=== PATIENT | male | born 1950 | race American Indian/Alaskan Native ===

== ENCOUNTER 2019-07-26 14:23 | Inpatient (IN) | payer MEDICARE ==
[2019-07-26] MEDS ORDERED: ALBUTEROL 2.5 MG/3 ML NEBU IH ONE (15:20)
[2019-07-26] MEDS ORDERED: IPRATROPIUM 0.02% NEBU 2.5 ML IH ONE (15:20)
[2019-07-26] MEDS ORDERED: methylPREDNISolone Sod Succinate 125 MG/2 ML INJ IV ONE (15:20)
--- NOTE | 2019-07-26 15:25 | Emergency Department Report ---
ED Shortness of Breath HPI - General Stated Complaint: CHRISTAL Time Seen by Provider: 07/26/19 15:10 - History of Present Illness Initial Comments: Patient is 68 years old male with history of COPD. Patient brought to the emergency room via EMS from home for evaluation of difficulty breathing and cough for the last 3 days. Patient stated that he has been using his albuterol with no improvement. Patient denied any fever but he stated that he has been fernandez ving some chills. Patient denied any chest pain, abdominal pain, nausea or vomiting. On 2 L/min oxygen at home. MD Complaint: shortness of breath, cough -: days(s) (3) - Related Data Allergies Allergy/AdvReac Type Severity Reaction Status Date / Time No Known Allergies Allergy Verified 07/26/19 15:33 ED Review of Systems ROS: Stated complaint: CHRISTAL Other details as noted in HPI Comment: All other systems reviewed and negative Constitutional: chills. denies: fever Respiratory: cough, shortness of breath, SOB with exertion, SOB at rest, wheezing Cardiovascular: denies: chest pain, palpitations Gastrointestinal: denies: abdominal pain, nausea, vomiting, diarrhea, constipation, hematemesis, melena, hematochezia ED Physical Exam - General General appearance: alert, in distress (Moderate respiratory distress) - Head Head exam: Present: atraumatic, normocephalic, normal inspection - Eye Eye exam: Present: normal appearance, PERRL - ENT ENT exam: Present: normal exam, normal orophraynx, mucous membranes moist - Neck Neck exam: Present: normal inspection, full ROM. Absent: tenderness, meningismus - Respiratory Respiratory exam: Present: respiratory distress, wheezes, rales, rhonchi, decreased breath sounds, prolonged expiratory. Absent: accessory muscle use - Cardiovascular Cardiovascular Exam: Present: regular rate, normal rhythm, normal heart sounds - GI/Abdominal GI/Abdominal exam: Present: soft, normal bowel sounds. Absent: distended, tenderness, guarding, rebound, rigid, organomegaly, mass, bruit, pulsatile mass, hernia - Extremities Exam Extremities exam: Present: normal inspection, full ROM, normal capillary refill. Absent: pedal edema, calf tenderness - Back Exam Back exam: Present: normal inspection, full ROM. Absent: CVA tenderness (R), CVA tenderness (L) - Neurological Exam Neurological exam: Present: alert, oriented X3, CN II-XII intact - Psychiatric Psychiatric exam: Present: normal mood - Skin Skin exam: Present: warm, intact, normal color ED Course Vital Signs 07/26/19 15:31 Temperature 98.4 F Pulse Rate 71 Respiratory 18 Rate Blood Pressure 126/69 [Left] O2 Sat by Pulse 100 Oximetry ED Medical Decision Making - Lab Data Result diagrams: 07/26/19 15:26 07/26/19 15:26 - EKG Data -: EKG Interpreted by Me EKG shows normal: sinus rhythm Rate: normal - EKG Data Interpretation: no acute changes - Radiology Data Radiology results: report reviewed - Medical Decision Making Patient is 68 years old male with history of COPD. Patient brought to the emergency room via EMS from home for evaluation of difficulty breathing and cough for the last 3 days. Patient stated that he has been using his albuterol with no improvement. Patient denied any fever but he stated that he has been having some chills. Patient denied any chest pain, abdominal pain, nausea or vomiting. On 2 L/min oxygen at home. Patient received albuterol, Atrovent and Solu-Medrol. Patient symptoms improved. Labs reviewed and ABG showed a PCO2 of 98, patient started on BiPAP. Chest x-ray is unremarkable. I discussed the patient with Dr. Zepeda, he agreed to admit the patient to medical service for further management. Critical Care Time: Yes Critical care time in (mins) excluding proc time.: 30 Critical care attestation.: If time is entered above; I have spent that time in minutes in the direct care of this critically ill patient, excluding procedure time. ED Disposition Clinical Impression: Acute and chronic respiratory failure, COPD exacerbation Disposition: - OP ADMIT IP TO THIS HOSP Is pt being admited?: Yes Condition: Stable Instructions: Chronic Obstructive Pulmonary Disease (ED) Referrals: PRIMARY CARE, [Primary Care Provider] - 3-5 Days
[2019-07-26 15:44] LABS: Basophils # (Auto) 0.1 K/mm3 (0.0-0.1); Basophils % (Auto) 0.9 % (0.0-1.8); Eosinophils # (Auto) 0.1 K/mm3 (0.0-0.4); Eosinophils % (Auto) 1.9 % (0.0-4.3); Hematocrit 31.7 % (35.5-45.6); Hemoglobin 10.2 gm/dl (11.8-15.2); Lymphocytes # (Auto) 2.7 K/mm3 (1.2-5.4); Lymphocytes % (Auto) 39.3 % (13.4-35.0); Mean Corpuscular HGB Conc 32 % (32-34); Mean Corpuscular Volume 95 fl (84-94); Monocytes # (Auto) 0.9 K/mm3 (0.0-0.8); Monocytes % (Auto) 13.5 % (0.0-7.3); Platelet Count 198 K/mm3 (140-440); Red Blood Count 3.33 M/mm3 (3.65-5.03); Red Cell Distribution Width 17.4 % (13.2-15.2)
[2019-07-26 15:59] LABS: INR 1.15 (0.87-1.13)
[2019-07-26 16:00] LABS: Partial Thromboplastin Time 39.7 Sec. (24.2-36.6)
[2019-07-26 16:06] LABS: Alanine Aminotransferase 83 units/L (7-56); Albumin 3.4 g/dL (3.9-5); BUN/Creatinine Ratio 13; Blood Urea Nitrogen 9 mg/dL (9-20); Calcium 8.7 mg/dL (8.4-10.2); Hemolysis Index 20
--- NOTE | 2019-07-26 16:22 | XRay Report ---
CHEST 1 VIEW INDICATION: Dyspnea COMPARISON: None FINDINGS: SUPPORT DEVICES: None. HEART / MEDIASTINUM: No significant abnormality. LUNGS / PLEURA: No significant pulmonary or pleural abnormality. No pneumothorax. ADDITIONAL FINDINGS: IMPRESSION: 1. No acute cardiopulmonary disease COPD Signer Name: Yaya Drummond MD Signed: 07/26/2019 4:17 PM Workstation Name: [id number]
[2019-07-26 16:46] LABS: ABG Base Excess 20.3 mmol/L (-2.0-3.0); ABG HCO3 49.8 mmol/L (20.0-26.0); ABG Methemoglobin 0.2 % (0.0-1.5); ABG Oxygen Saturation 98.2 % (95.0-99.0); ABG PCO2 98.2 mm Hg; ABG PH 7.323 pH Units (7.350-7.450); ABG PO2 136.5 mm Hg (80.0-90.0)
[2019-07-26] MEDS ORDERED: SODIUM CHLORIDE 0.9% 1000 ML 1,000 ML ONE (16:58)
[2019-07-26] MEDS ORDERED: ONDANSETRON 4 MG/2 ML INJ IV PRN (20:59)
[2019-07-26] MEDS ORDERED: ACETAMINOPHEN 325 MG TAB PO PRN (20:59)
--- NOTE | 2019-07-26 20:59 | History and Physical Report ---
History of Present Illness Date of examination: 07/26/19 Date of admission: 07/26/19 17:37 Chief complaint: Increaing sib for 3 days History of present illness: Patient is 68 years old male with history of COPD. Patient brought to the emergency room via EMS from home for evaluation of difficulty breathing and cough for the last 3 days. Cough [roductive of mucoid sputum to green sputum.Very sob. Patient stated that he has been using his albuterol with no improvement. Patient denied any fever but he stated that he has been having some chills. Patient denied any chest pain, abdominal pain, nausea or vomiting. On 2 L/min oxygen at home.No exposure to quiroz virus. Past History Past Medical History: COPD Past Surgical History: No surgical history Social history: lives with family, smoking, full code Family history: hypertension Medications and Allergies Allergies Allergy/AdvReac Type Severity Reaction Status Date / Time No Known Allergies Allergy Verified 07/26/19 15:33 Review of Systems All systems: negative Constitutional: no weight loss, no weight gain, no fever, no chills Ears, nose, mouth and throat: no nasal congestion, no nasal discharge, no sinus pressure, no sinus pain Cardiovascular: shortness of breath, no chest pain, no orthopnea, no palpitations, no rapid/irregular heart beat, no edema, no syncope Respiratory: cough with sputum, shortness of breath, congestion Gastrointestinal: no abdominal pain, no nausea, no vomiting, no diarrhea Rectal: no pain Musculoskeletal: no neck stiffness, no neck pain, no shooting arm pain, no arm numbness/tingling Integumentary: no rash, no pruritis, no redness, no sores Neurological: no head injury, no transient paralysis, no paralysis, no weakness Psychiatric: no anxiety, no memory loss, no change in sleep habits Endocrine: no cold intolerance, no heat intolerance, no polyphagia Hematologic/Lymphatic: no easy bruising, no easy bleeding Allergic/Immunologic: wheezing, no urticaria, no allergic rhinitis Exam - Constitutional Vitals: Temp Pulse Resp BP Pulse Ox 98.4 F 62 18 93/60 100 07/26/19 15:31 07/26/19 19:23 07/26/19 19:23 07/26/19 19:23 07/26/19 19:23 General appearance: Present: no acute distress, well-nourished - EENT Eyes: Present: PERRL ENT: hearing intact, clear oral mucosa - Neck Neck: Present: supple, normal ROM - Respiratory Respiratory effort: normal Respiratory: bilateral: diminished, rhonchi, wheezing - Cardiovascular Heart rate: 78 Rhythm: regular Heart Sounds: Present: S1 & S2. Absent: rub, click - Extremities Extremities: no ischemia, pulses intact, pulses symmetrical, No edema Peripheral Pulses: within normal limits - Abdominal General gastrointestinal: Present: soft, non-tender, non-distended, normal bowel sounds Male genitourinary: Present: normal - Rectal Rectal Exam: deferred - Integumentary Integumentary: Present: clear, warm, dry - Musculoskeletal Musculoskeletal: gait normal, strength equal bilaterally - Psychiatric Psychiatric: appropriate mood/affect, intact judgment & insight - Neurologic Neurologic: CNII-XII intact, moves all extremities - Allied Health Allied health notes reviewed: nursing, case management HEART Score - HEART Score Troponin: Troponin T < 0.010 ng/mL (0.00-0.029) 07/26/19 15:26 Results - Labs CBC & Chem 7: 07/27/19 04:08 07/27/19 04:08 Labs: Laboratory Last Values WBC 6.9 K/mm3 (4.5-11.0) 07/26/19 15:26 RBC 3.33 M/mm3 (3.65-5.03) L 07/26/19 15:26 Hgb 10.2 gm/dl (11.8-15.2) L 07/26/19 15:26 Hct 31.7 % (35.5-45.6) L 07/26/19 15:26 MCV 95 fl (84-94) H 07/26/19 15:26 MCH 31 pg (28-32) 07/26/19 15:26 MCHC 32 % (32-34) 07/26/19 15:26 RDW 17.4 % (13.2-15.2) H 07/26/19 15:26 Plt Count 198 K/mm3 (140-440) 07/26/19 15:26 Lymph % (Auto) 39.3 % (13.4-35.0) H 07/26/19 15:26 [place] % (Auto) 13.5 % (0.0-7.3) H 07/26/19 15:26 Eos % (Auto) 1.9 % (0.0-4.3) 07/26/19 15: Baso % (Auto) 0.9 % (0.0-1.8) 07/26/19 15: Lymph # 2.7 K/mm3 (1.2-5.4) 07/26/19 15: [place] # 0.9 K/mm3 (0.0-0.8) H 07/26/19 15: Eos # 0.1 K/mm3 (0.0-0.4) 07/26/19 15: Baso # 0.1 K/mm3 (0.0-0.1) 07/26/19: Seg Neutrophils % 44.4 % (40.0-70.0) 07/26/19: Seg Neutrophils # 3.1 K/mm3 (1.8-7.7) 07/26/19 15: PT 14.5 Sec. (12.2-14.9) 07/26/19: INR 1.15 (0.87-1.13) H 07/26/19 15: APTT 39.7 Sec. (24.2-36.6) H 07/26/19 15:26 ABG pH 7.323 pH Units (7.350-7.450) L 07/26/19 16:40 ABG pCO2 98.2 mm Hg 07/26/19 16:40 ABG pO2 136.5 mm Hg (80.0-90.0) H 07/26/19 16:40 ABG HCO3 49.8 mmol/L (20.0-26.0) H 07/26/19 16:40 ABG O2 Saturation 98.2 % (95.0-99.0) 07/26/19 16:40 ABG O2 Content 12.8 (0.0-44) 07/26/19 16:40 ABG Base Excess 20.3 mmol/L (-2.0-3.0) H 07/26/19 16:40 ABG Hemoglobin 9.3 gm/dl (14.0-18.0) L 07/26/19 16:40 ABG Carboxyhemoglobin 2.3 % (0.0-5.0) 07/26/19 16:40 ABG Methemoglobin 0.2 % (0.0-1.5) 07/26/19 16:40 Oxyhemoglobin 95.8 % (95.0-99.0) 07/26/19 16:40 FiO2 28 % 07/26/19 16:40 Sodium 140 mmol/L (137-145) 07/26/19 15:26 Potassium 4.3 mmol/L (3.6-5.0) 07/26/19 15:26 Chloride 88.8 mmol/L (98-107) L 07/26/19 15:26 Carbon Dioxide 42 mmol/L (22-30) H* 07/26/19 15:26 Anion Gap 14 mmol/L 07/26/19 15:26 BUN 9 mg/dL (9-20) 07/26/19 15:26 Creatinine 0.7 mg/dL (0.8-1.5) L 07/26/19 15:26 Estimated GFR > 60 ml/min 07/26/19 15:26 BUN/Creatinine Ratio 13 % 07/26/19 15:26 Glucose 112 mg/dL (75-100) H 07/26/19 15:26 Calcium 8.7 mg/dL (8.4-10.2) 07/26/19 15:26 Magnesium 1.80 mg/dL (1.7-2.3) 07/26/19 15:26 Total Bilirubin 0.90 mg/dL (0.1-1.2) 07/26/19 15:26 AST 86 units/L (5-40) H 07/26/19 15:26 ALT 83 units/L (7-56) H 07/26/19 15:26 Alkaline Phosphatase 224 units/L (35-129) H 07/26/19 15:26 Troponin T < 0.010 ng/mL (0.00-0.029) 07/26/19 15:26 NT-Pro-B Natriuret Pep 147.1 pg/mL (0-900) 07/26/19 15:26 Total Protein 5.9 g/dL (6.3-8.2) L 07/26/19 15:26 Albumin 3.4 g/dL (3.9-5) L 07/26/19 15:26 Albumin/Globulin Ratio 1.4 % 06/07/20 15:26 Microbiology: Microbiology 07/26/19 15:26 Peripheral/Venous Blood Culture - Preliminary Culture in Progress 07/26/19 15:26 Peripheral/Venous Blood Culture - Preliminary Culture in Progress - Imaging and Cardiology EKG: report reviewed Chest x-ray: report reviewed (NAF) Dale/IV: IV Catheter Type [Left INT / Saline Lock Antecubital] Assessment and Plan Advance Directives: Yes (Full code) VTE prophylaxis?: Chemical - Patient Problems (1) Acute respiratory failure with hypoxia Current Visit: Yes Status: Acute Plan to address problem: Patient is hypoxic On High flow o2 Stated on IV abx IV solumedrol Duonebs round the clock and q 3 h prn (2) COPD exacerbation Current Visit: Yes Status: Acute Plan to address problem: Patient is hypoxic On High flow o2 Stated on IV abx IV solumedrol Duonebs round the clock and q 3 h prn (3) DVT prophylaxis Current Visit: Yes Status: Acute Plan to address problem: On Heparin and GI prophylaxis
[2019-07-26] MEDS ORDERED: SODIUM CHLORIDE 0.9% 1000 ML 1,000 ML IV SCH (21:00)
[2019-07-26] MEDS ORDERED: ZOLPIDEM 5 MG TAB PO PRN (21:01)
[2019-07-26] MEDS ORDERED: METOCLOPRAMIDE 10 MG/2 ML INJ IV PRN (21:01)
[2019-07-26] MEDS ORDERED: IPRATROPIUM/ALBUTEROL SULFATE 3 ML AMPUL.NEB IH PRN (21:06)
[2019-07-26] MEDS ORDERED: ALBUTEROL 2.5 MG/3 ML NEBU IH PRN (21:16)
[2019-07-26] MEDS: methylPREDNISolone Sod Succinate 125 MG/2 ML INJ IV SCH (22:37)
[2019-07-26] MEDS: FAMOTIDINE 20 MG/2 ML INJ IV SCH (22:40)
[2019-07-26] MEDS: HEPARIN 5,000 UNIT/1 ML VIAL SUB-Q SCH (22:41)
[2019-07-27 04:33] LABS: Basophils % (Auto) 0.2 % (0.0-1.8); Hematocrit 28.7 % (35.5-45.6); Hemoglobin 9.2 gm/dl (11.8-15.2); Lymphocytes # (Auto) 0.8 K/mm3 (1.2-5.4); Lymphocytes % (Auto) 27.1 % (13.4-35.0); Mean Corpuscular HGB Conc 32 % (32-34); Mean Corpuscular Volume 94 fl (84-94); Monocytes # (Auto) 0.1 K/mm3 (0.0-0.8); Monocytes % (Auto) 3.4 % (0.0-7.3); Platelet Count 211 K/mm3 (140-440); Red Blood Count 3.04 M/mm3 (3.65-5.03); Red Cell Distribution Width 17.1 % (13.2-15.2)
[2019-07-27 04:55] LABS: Alanine Aminotransferase 71 units/L (7-56); Albumin 3.2 g/dL (3.9-5); BUN/Creatinine Ratio 10; Blood Urea Nitrogen 7 mg/dL (9-20); Calcium 8.4 mg/dL (8.4-10.2); Hemolysis Index 3
[2019-07-27 05:04] LABS: Bacteria,Urine 1+ /HPF (Negative); Bilirubin,Urine NEG (Negative); Blood,Urine NEG (Negative); Color,Urine Yellow (Yellow); Mucus,Urine FEW /HPF; Protein,Urine <15 mg/dL mg/dL (Negative)
[2019-07-27] MEDS: methylPREDNISolone Sod Succinate 125 MG/2 ML INJ IV SCH ×3 (05:19→22:48)
[2019-07-27] MEDS ORDERED: SODIUM CHLORIDE 0.9% 1000 ML 1,000 ML IV SCH (07:30)
[2019-07-27] MEDS: IPRATROPIUM/ALBUTEROL SULFATE 3 ML AMPUL.NEB IH SCH ×4 (07:56→21:19)
[2019-07-27] MEDS: HYDROmorphone 1 MG/1 ML INJ IV PRN ×3 (08:00→18:05)
--- NOTE | 2019-07-27 09:11 | Progress Note ---
Assessment and Plan Assessment and plan: --Acute on chronic hypoxic respiratory failure; Requiring BiPAP, patient feels slightly better Home oxygen dependent Continue O2 , maintain O2 sats more than 92% Pulmonary consult if no improvement --Acute exacerbation of COPD; Oxygen, BiPAP as needed, nebulizers IV steroids, inhalation steroids and supportive care --Transaminitis; unknown etiology Trending down, closely monitor LFTs Abdominal ultrasound and GI evaluation if no improvement --Severe malnutrition; cachexia; BMI 14.8 Nutrition supplements, nutritional consult --DVT prophylaxis; heparin --Full CODE STATUS Patient strongly advised to comply with medications and follow-up visits Closely monitor the patient and adjust management as needed Plan of care reviewed with the patient and his nurse History Interval history: Patient seen and examined at the bedside this morning Patient's chart, medications, tests, overnight events reviewed Patient is in acute respiratory distress, receiving BiPAP Chronically ill looking, cachectic emaciated Vital signs reviewed Hospitalist Physical - Constitutional Vitals: Temp Pulse Resp BP Pulse Ox 99.2 F 72 16 101/74 100 07/27/19 07:15 07/27/19 07:15 07/27/19 07:15 07/27/19 07:15 07/27/19 07:15 General appearance: Present: mild distress, cachectic, disheveled, other (Emaciated) - EENT Eyes: Present: PERRL, EOM intact - Neck Neck: Present: supple, normal ROM - Respiratory Respiratory effort: normal Respiratory: bilateral: diminished, rhonchi, wheezing, negative: rales - Extremities Extremities: no ischemia, No edema - Abdominal General gastrointestinal: soft, non-tender, non-distended, normal bowel sounds - Integumentary Integumentary: Present: clear, warm - Psychiatric Psychiatric: appropriate mood/affect, cooperative - Neurologic Neurologic: moves all extremities HEART Score - HEART Score Troponin: Troponin T < 0.010 ng/mL (0.00-0.029) 07/26/19 15:26 Results - Labs CBC & Chem 7: 07/27/19 04:08 07/27/19 04:08 Labs: Laboratory Last Values WBC 2.8 K/mm3 (4.5-11.0) L 07/27/19 04:08 RBC 3.04 M/mm3 (3.65-5.03) L 07/27/19 04:08 Hgb 9.2 gm/dl (11.8-15.2) L 07/27/19 04:08 Hct 28.7 % (35.5-45.6) L 07/27/19 04:08 MCV 94 fl (84-94) 07/27/19 04:08 MCH 31 pg (28-32) 07/27/19 04:08 MCHC 32 % (32-34) 07/27/19 04:08 RDW 17.1 % (13.2-15.2) H 07/27/19 04:08 Plt Count 211 K/mm3 (140-440) 07/27/19 04:08 Lymph % (Auto) 27.1 % (13.4-35.0) 07/27/19 04:08 [place] % (Auto) 3.4 % (0.0-7.3) 07/27/19 04:08 Eos % (Auto) 0.0 % (0.0-4.3) 07/27/19 04:08 Baso % (Auto) 0.2 % (0.0-1.8) 07/27/19 04:08 Lymph # 0.8 K/mm3 (1.2-5.4) L 07/27/19 04:08 [place] # 0.1 K/mm3 (0.0-0.8) 07/27/19 04:08 Eos # 0.0 K/mm3 (0.0-0.4) 07/27/19 04:08 Baso # 0.0 K/mm3 (0.0-0.1) 07/27/19 04:08 Seg Neutrophils % 69.3 % (40.0-70.0) 07/27/19 04:08 Seg Neutrophils # 2.0 K/mm3 (1.8-7.7) 07/27/19 04:08 PT 14.5 Sec. (12.2-14.9) 07/26/19 15:26 INR 1.15 (0.87-1.13) H 07/26/19 15:26 APTT 39.7 Sec. (24.2-36.6) H 07/26/19 15:26 ABG pH 7.323 pH Units (7.350-7.450) L 07/26/19 16:40 ABG pCO2 98.2 mm Hg 07/26/19 16:40 ABG pO2 136.5 mm Hg (80.0-90.0) H 07/26/19 16:40 ABG HCO3 49.8 mmol/L (20.0-26.0) H 07/26/19 16:40 ABG O2 Saturation 98.2 % (95.0-99.0) 07/26/19 16:40 ABG O2 Content 12.8 (0.0-44) 07/26/19 16:40 ABG Base Excess 20.3 mmol/L (-2.0-3.0) H 07/26/19 16:40 ABG Hemoglobin 9.3 gm/dl (14.0-18.0) L 07/26/19 16:40 ABG Carboxyhemoglobin 2.3 % (0.0-5.0) 07/26/19 16:40 ABG Methemoglobin 0.2 % (0.0-1.5) 07/26/19 16:40 Oxyhemoglobin 95.8 % (95.0-99.0) 07/26/19 16:40 FiO2 28 % 07/26/19 16:40 Sodium 142 mmol/L (137-145) 07/27/19 04:08 Potassium 3.9 mmol/L (3.6-5.0) 07/27/19 04:08 Chloride 93.7 mmol/L (98-107) L 07/27/19 04:08 Carbon Dioxide 39 mmol/L (22-30) H 07/27/19 04:08 Anion Gap 13 mmol/L 07/27/19 04:08 BUN 7 mg/dL (9-20) L 07/27/19 04:08 Creatinine 0.7 mg/dL (0.8-1.5) L 07/27/19 04:08 Estimated GFR > 60 ml/min 07/27/19 04:08 BUN/Creatinine Ratio 10 % 07/27/19 04:08 Glucose 113 mg/dL (75-100) H 07/27/19 04:08 Hemoglobin A1c 4.6 % (4-6) 07/26/19 15:26 Calcium 8.4 mg/dL (8.4-10.2) 07/27/19 04:08 Magnesium 1.80 mg/dL (1.7-2.3) 07/26/19 15:26 Total Bilirubin 1.20 mg/dL (0.1-1.2) 07/27/19 04:08 AST 66 units/L (5-40) H 07/27/19 04:08 ALT 71 units/L (7-56) H 07/27/19 04:08 Alkaline Phosphatase 195 units/L (35-129) H 07/27/19 04:08 Troponin T < 0.010 ng/mL (0.00-0.029) 07/26/19 15:26 NT-Pro-B Natriuret Pep 147.1 pg/mL (0-900) 07/26/19 15:26 Total Protein 5.7 g/dL (6.3-8.2) L 07/27/19 04:08 Albumin 3.2 g/dL (3.9-5) L 07/27/19 04:08 Albumin/Globulin Ratio 1.3 % 07/27/19 04:08 Urine Color Yellow (Yellow) 07/26/19 04:35 Urine Turbidity Slightly-cloudy (Clear) 07/26/19 04:35 Urine pH 8.0 (5.0-7.0) H 07/26/19 04:35 Ur Specific Page 1.014 (1.003-1.030) 07/26/19 04:35 Urine Protein <15 mg/dl mg/dL (Negative) 07/26/19 04:35 Urine Glucose (UA) Neg mg/dL (Negative) 07/26/19 04:35 Urine Ketones Tr mg/dL (Negative) 07/26/19 04:35 Urine Blood Neg (Negative) 07/26/19 04:35 Urine Nitrite Neg (Negative) 07/26/19 04:35 Urine Bilirubin Neg (Negative) 07/26/19 04:35 Urine Urobilinogen 2.0 mg/dL (<2.0) 07/26/19 04:35 Ur Leukocyte Esterase Tr (Negative) 07/26/19 04:35 Urine WBC (Auto) 7.0 /HPF (0.0-6.0) H 07/26/19 04:35 Urine RBC (Auto) 1.0 /HPF (0.0-6.0) 07/26/19 04:35 U Epithel Cells (Auto) 1.0 /HPF (0-13.0) 07/26/19 04:35 Urine Bacteria (Auto) 1+ /HPF (Negative) 07/26/19 04:35 Urine Mucus Few /HPF 07/26/19 04:35 Microbiology: Microbiology 07/26/19 15:26 Peripheral/Venous Blood Culture - Preliminary Culture in Progress 07/26/19 15:26 Peripheral/Venous Blood Culture - Preliminary Culture in Progress Dale/IV: Voiding Method Urinal IV Catheter Type [Left INT / Saline Lock Antecubital] Active Medications - Current Medications Current Medications: Generic Name Dose Route Start Last Admin Trade Name Freq PRN Reason Stop Dose Admin Acetaminophen 650 mg 07/26/19 20:59 Tylenol PO Q4H PRN Pain MILD(1-3)/Fever >100.5/DOUGLAS Albuterol 2.5 mg 07/26/19 21:16 Proventil IH Q3HRT PRN Wheezing Albuterol/Ipratropium 1 ampul 07/27/19 08:00 07/27/19 07:56 Duoneb *Not For Prn Use* IH 1 ampul QIDRT NANCY Administration Famotidine 20 mg 07/26/19 22:00 07/26/19 22:40 Pepcid IV 20 mg BID NANCY Administration Heparin Sodium (Porcine) 5,000 unit 07/26/19 22:00 07/26/19 22:41 Heparin SUB-Q 5,000 unit Q12HR NANCY Administration Hydromorphone HCl 0.5 mg 07/26/19 21:01 Dilaudid IV Q3H PRN Pain , Severe (7-10) Sodium Chloride 1,000 mls @ 42 mls/hr 07/26/19 21:00 07/26/19 22:35 Nacl 0.9% 1000 Ml IV 07/27/19 23:59 42 mls/hr DIRECT NANCY Administration Levofloxacin/Dextrose 750 mg in 150 mls @ 100 mls/hr 07/26/19 22:00 07/26/19 22:39 Levaquin 750mg/150ml IV 100 mls/hr Q24HR@2200 NANCY Administration Protocol Sodium Chloride 1,000 mls @ 125 mls/hr 07/27/19 07:30 Nacl 0.9% 1000 Ml IV 07/27/19 18:00 DIRECT NANCY Methylprednisolone Sodium Succinate 80 mg 07/26/19 22:00 07/27/19 05:19 Solu-Medrol IV 80 mg Q8HR NANCY Administration Metoclopramide HCl 10 mg 07/26/19 21:01 Reglan IV Q6H PRN Nausea And Vomiting Ondansetron HCl 4 mg 07/26/19 20:59 Zofran IV Q8H PRN Nausea And Vomiting Oxycodone/Acetaminophen 1 tab 07/26/19 21:01 Percocet 5/325 PO Q6H PRN Pain, Moderate (4-6) Sodium Chloride 10 ml 07/26/19 22:00 07/26/19 22:55 Sodium Chloride Flush Syringe 10 Ml IV 10 ml BID NANCY Administration Sodium Chloride 10 ml 07/26/19 20:59 Sodium Chloride Flush Syringe 10 Ml IV PRN PRN LINE FLUSH Zolpidem Tartrate 5 mg 07/26/19 21:01 Ambien PO QHS PRN Insomnia
[2019-07-27] MEDS: oxyCODONE /ACETAMINOPHEN 5-325MG TAB PO PRN (09:45)
[2019-07-27] MEDS: FAMOTIDINE 20 MG/2 ML INJ IV SCH (09:55)
[2019-07-27] MEDS: HEPARIN 5,000 UNIT/1 ML VIAL SUB-Q SCH ×2 (09:55→22:48)
--- NOTE | 2019-07-27 12:14 | Consultation ---
History of Present Illness Consult date: 07/27/19 Requesting physician: MIRIAM ISIDRO Reason for consult: COPD History of present illness: 68 y/o male, followed by [facility] with known COPD. Patient has a lung specialist but cannot remember the name. patient states that he feels better now with steroids. CXR is clear, just shows hyperinflation. Patient still smoking. Past History Past Medical History: COPD Past Surgical History: No surgical history Social history: lives with family, smoking, full code Family history: hypertension Medications and Allergies Allergies Allergy/AdvReac Type Severity Reaction Status Date / Time No Known Allergies Allergy Verified 07/26/19 15:33 Active Meds: Active Medications Acetaminophen (Tylenol) 650 mg PO Q4H PRN PRN Reason: Pain MILD(1-3)/Fever >100.5/DOUGLAS Albuterol (Proventil) 2.5 mg IH Q3HRT PRN PRN Reason: Wheezing Albuterol/Ipratropium (Duoneb *Not For Prn Use*) 1 ampul IH QIDRT [facility] Last Admin: 07/27/19 07:56 Dose: 1 ampul Documented by: Famotidine (Pepcid) 20 mg IV BID [facility] Last Admin: 07/27/19 09:55 Dose: 20 mg Documented by: Heparin Sodium (Porcine) (Heparin) 5,000 unit SUB-Q Q12HR [facility] Last Admin: 07/27/19 09:55 Dose: 5,000 unit Documented by: Hydromorphone HCl (Dilaudid) 0.5 mg IV Q3H PRN PRN Reason: Pain , Severe (7-10) Last Admin: 07/27/19 08:00 Dose: 0.5 mg Documented by: Sodium Chloride (Nacl 0.9% 1000 Ml) 1,000 mls @ 42 mls/hr IV DIRECT NANCY Stop: 07/27/19 23:59 Last Admin: 07/26/19 22:35 Dose: 42 mls/hr Documented by: Levofloxacin/Dextrose (Levaquin 750mg/150ml) 750 mg in 150 mls @ 100 mls/hr IV Q24HR@2200 NANCY; Protocol Last Admin: 07/26/19 22:39 Dose: 100 mls/hr Documented by: Sodium Chloride (Nacl 0.9% 1000 Ml) 1,000 mls @ 125 mls/hr IV DIRECT NANCY Stop: 07/27/19 18:00 Last Admin: 07/27/19 09:57 Dose: 125 mls/hr Documented by: Methylprednisolone Sodium Succinate (Solu-Medrol) 80 mg IV Q8HR [facility] Last Admin: 07/27/19 05:19 Dose: 80 mg Documented by: Metoclopramide HCl (Reglan) 10 mg IV Q6H PRN PRN Reason: Nausea And Vomiting Ondansetron HCl (Zofran) 4 mg IV Q8H PRN PRN Reason: Nausea And Vomiting Oxycodone/Acetaminophen (Percocet 5/325) 1 tab PO Q6H PRN PRN Reason: Pain, Moderate (4-6) Last Admin: 07/27/19 09:45 Dose: 1 tab Documented by: Sodium Chloride (Sodium Chloride Flush Syringe 10 Ml) 10 ml IV BID [facility] Last Admin: 07/27/19 09:55 Dose: 10 ml Documented by: Sodium Chloride (Sodium Chloride Flush Syringe 10 Ml) 10 ml IV PRN PRN PRN Reason: LINE FLUSH Zolpidem Tartrate (Ambien) 5 mg PO QHS PRN PRN Reason: Insomnia Review of Systems All systems: negative Physical Examination Vital signs: Vital Signs Pulse Resp 97 H 19 07/26/19 15:08 07/26/19 15:08 General appearance: no acute distress, alert, other (thin and cachectic) Eyes: non-icteric ENT: other (clear but poor dentition) Neck: supple Ascultation: Bilateral: diminished breath sounds, wheezes Percussion: Bilateral: not dull Tactile fremitus: Bilateral: normal Cardiovascular: regular rate and rhythm Gastrointestinal: normoactive bowel sounds, soft Extremities: no edema Results - Laboratory Findings CBC and BMP: 07/27/19 04:08 07/27/19 04:08 ABG ABG pH 7.323 pH Units (7.350-7.450) L 07/26/19 16:40 ABG pCO2 98.2 mm Hg 07/26/19 16:40 ABG pO2 136.5 mm Hg (80.0-90.0) H 07/26/19 16:40 ABG O2 Saturation 98.2 % (95.0-99.0) 07/26/19 16:40 PT/INR, D-dimer PT 14.5 Sec. (12.2-14.9) 07/26/19 15:26 INR 1.15 (0.87-1.13) H 07/26/19 15:26 Abnormal lab findings: Abnormal Labs 07/26/19 07/26/19 07/26/19 04:35 15:26 15:26 WBC RBC 3.33 L Hgb 10.2 L Hct 31.7 L MCV 95 H RDW 17.4 H Lymph % (Auto) 39.3 H [place] % (Auto) 13.5 H Lymph # [place] # 0.9 H INR APTT ABG pH ABG pO2 ABG HCO3 ABG Base Excess ABG Hemoglobin Chloride 88.8 L Carbon Dioxide 42 H* BUN Creatinine 0.7 L Glucose 112 H AST 86 H ALT 83 H Alkaline Phosphatase 224 H Total Protein 5.9 L Albumin 3.4 L Urine pH 8.0 H Urine WBC (Auto) 7.0 H 07/26/19 07/26/19 07/27/19 15:26 16:40 04:08 WBC 2.8 L RBC 3.04 L Hgb 9.2 L Hct 28.7 L MCV RDW 17.1 H Lymph % (Auto) [place] % (Auto) Lymph # 0.8 L [place] # INR 1.15 H APTT 39.7 H ABG pH 7.323 L ABG pO2 136.5 H ABG HCO3 49.8 H ABG Base Excess 20.3 H ABG Hemoglobin 9.3 L Chloride Carbon Dioxide BUN Creatinine Glucose AST ALT Alkaline Phosphatase Total Protein Albumin Urine pH Urine WBC (Auto) 07/27/19 04:08 WBC RBC Hgb Hct MCV RDW Lymph % (Auto) [place] % (Auto) Lymph # [place] # INR APTT ABG pH ABG pO2 ABG HCO3 ABG Base Excess ABG Hemoglobin Chloride 93.7 L Carbon Dioxide 39 H BUN 7 L Creatinine 0.7 L Glucose 113 H AST 66 H ALT 71 H Alkaline Phosphatase 195 H Total Protein 5.7 L Albumin 3.2 L Urine pH Urine WBC (Auto) - Diagnostic Findings Chest x-ray: image reviewed (no evidence of acute disease) Assessment and Plan 68 y/o male with COPD exacerbation. Ok with current doses of steroids Added BID pulmicort and brovana therapy. Continue PRN albuterol Would stop IVF as long as patient is eating Await CM to give name of lung specialist Will continue to follow. Thank you for this consult.
[2019-07-27] MEDS: BUDESONIDE 0.5 MG/2 ML NEBU IH SCH (21:19)
[2019-07-27] MEDS: ARFORMOTEROL 15 MCG/2 ML NEBU IH SCH (21:21)
[2019-07-27] MEDS: FAMOTIDINE 20 MG TAB PO SCH (22:48)
[2019-07-28 04:41] LABS: Alanine Aminotransferase 62 units/L (7-56); BUN/Creatinine Ratio 15; Blood Urea Nitrogen 9 mg/dL (9-20); Calcium 8.4 mg/dL (8.4-10.2); Hemolysis Index 1
[2019-07-28] MEDS: methylPREDNISolone Sod Succinate 125 MG/2 ML INJ IV SCH ×3 (05:22→21:47)
[2019-07-28] MEDS: ARFORMOTEROL 15 MCG/2 ML NEBU IH SCH ×2 (07:26→20:22)
[2019-07-28] MEDS: BUDESONIDE 0.5 MG/2 ML NEBU IH SCH ×2 (07:26→20:22)
[2019-07-28] MEDS: IPRATROPIUM/ALBUTEROL SULFATE 3 ML AMPUL.NEB IH SCH ×3 (07:26→20:22)
--- NOTE | 2019-07-28 09:56 | Progress Note ---
Assessment and Plan 68 y/o male with COPD exacerbation. Ok with current doses of steroids Added BID pulmicort and brovana therapy. Continue PRN albuterol Would stop IVF as long as patient is eating Await CM to give name of lung specialist. They were not able to find May need triology at discharge. Subjective Date of service: 07/28/19 Interval history: No acute events. Wore bipap last night after asking to be on it. Objective Vital Signs - 12hr 07/27/19 07/28/19 07/28/19 23:36 03:58 07:13 Temperature 97.4 F L 99.2 F 98.3 F Pulse Rate 79 79 Respiratory 20 18 18 Rate Blood Pressure 105/61 115/75 147/72 O2 Sat by Pulse 100 100 Oximetry Constitutional: no acute distress, alert, other (thin and cachectic) Eyes: non-icteric ENT: other (clear but poor dentition) Neck: supple Ascultation: Bilateral: diminished breath sounds, wheezes Percussion: Bilateral: not dull Tactile fremitus: Bilateral: normal Cardiovascular: regular rate and rhythm Gastrointestinal: normoactive bowel sounds, soft Extremities: no edema CBC and BMP: 07/27/19 04:08 07/28/19 03:36 ABG, PT/INR, D-dimer: ABG ABG pH 7.323 pH Units (7.350-7.450) L 07/26/19 16:40 ABG pCO2 98.2 mm Hg 07/26/19 16:40 ABG pO2 136.5 mm Hg (80.0-90.0) H 07/26/19 16:40 ABG O2 Saturation 98.2 % (95.0-99.0) 07/26/19 16:40 PT/INR, D-dimer PT 14.5 Sec. (12.2-14.9) 07/26/19 15:26 INR 1.15 (0.87-1.13) H 07/26/19 15:26 Abnormal lab findings: Abnormal Labs 07/26/19 07/26/19 07/26/19 04:35 15:26 15:26 WBC RBC 3.33 L Hgb 10.2 L Hct 31.7 L MCV 95 H RDW 17.4 H Lymph % (Auto) 39.3 H [place] % (Auto) 13.5 H Lymph # [place] # 0.9 H INR APTT ABG pH ABG pO2 ABG HCO3 ABG Base Excess ABG Hemoglobin Chloride 88.8 L Carbon Dioxide 42 H* BUN Creatinine 0.7 L Glucose 112 H AST 86 H ALT 83 H Alkaline Phosphatase 224 H Total Protein 5.9 L Albumin 3.4 L Urine pH 8.0 H Urine WBC (Auto) 7.0 H 07/26/19 07/26/19 07/27/19 15:26 16:40 04:08 WBC 2.8 L RBC 3.04 L Hgb 9.2 L Hct 28.7 L MCV RDW 17.1 H Lymph % (Auto) [place] % (Auto) Lymph # 0.8 L [place] # INR 1.15 H APTT 39.7 H ABG pH 7.323 L ABG pO2 136.5 H ABG HCO3 49.8 H ABG Base Excess 20.3 H ABG Hemoglobin 9.3 L Chloride Carbon Dioxide BUN Creatinine Glucose AST ALT Alkaline Phosphatase Total Protein Albumin Urine pH Urine WBC (Auto) 07/27/19 07/28/19 04:08 03:36 WBC RBC Hgb Hct MCV RDW Lymph % (Auto) [place] % (Auto) Lymph # [place] # INR APTT ABG pH ABG pO2 ABG HCO3 ABG Base Excess ABG Hemoglobin Chloride 93.7 L 95.9 L Carbon Dioxide 39 H 38 H BUN 7 L Creatinine 0.7 L 0.6 L Glucose 113 H 135 H AST 66 H 52 H ALT 71 H 62 H Alkaline Phosphatase 195 H 158 H Total Protein 5.7 L 5.8 L Albumin 3.2 L 3.0 L Urine pH Urine WBC (Auto)
[2019-07-28] MEDS: FAMOTIDINE 20 MG TAB PO SCH ×2 (10:07→21:48)
[2019-07-28] MEDS: HEPARIN 5,000 UNIT/1 ML VIAL SUB-Q SCH ×2 (10:07→21:47)
--- NOTE | 2019-07-28 20:37 | Progress Note ---
Assessment and Plan Assessment and plan: --Acute exacerbation of COPD; Oxygen, BiPAP as needed, nebulizers IV steroids, inhalation steroids and supportive care --Acute on chronic hypoxic respiratory failure; Requiring BiPAP, patient feels slightly better Home oxygen dependent Continue O2 , maintain O2 sats more than 92% Pulmonary following --Transaminitis; unknown etiology Trending down, closely monitor LFTs Abdominal ultrasound and GI evaluation if no improvement --Severe malnutrition; cachexia; BMI 14.8 Nutrition supplements, nutritional consult --DVT prophylaxis; heparin --Full CODE STATUS Patient strongly advised to comply with medications and follow-up visits Closely monitor the patient and adjust management as needed Plan of care reviewed with the patient and his nurse History Interval history: Patient seen and examined medical records reviewed Patient feels slightly better, continues to have mild shortness of breath Patient is cachectic emaciated malnourished Vital signs noted Hospitalist Physical - Constitutional Vitals: Temp Pulse Resp BP Pulse Ox 98.6 F 89 20 110/59 100 07/28/19 16:44 07/28/19 20:25 07/28/19 20:25 07/28/19 16:44 07/28/19 20:27 General appearance: Present: no acute distress, cachectic, disheveled, other (Emaciated) - EENT Eyes: Present: PERRL, EOM intact - Neck Neck: Present: supple, normal ROM - Respiratory Respiratory effort: normal Respiratory: bilateral: diminished, rhonchi, negative: rales, wheezing - Cardiovascular Rhythm: regular Heart Sounds: Present: S1 & S2 - Extremities Extremities: no ischemia, No edema - Abdominal General gastrointestinal: soft, non-tender, non-distended, normal bowel sounds - Integumentary Integumentary: Present: clear, warm - Psychiatric Psychiatric: appropriate mood/affect - Neurologic Neurologic: CNII-XII intact, moves all extremities HEART Score - HEART Score Troponin: Troponin T < 0.010 ng/mL (0.00-0.029) 07/26/19 15:26 Results - Labs CBC & Chem 7: 07/27/19 04:08 07/28/19 03:36 Labs: Laboratory Last Values WBC 2.8 K/mm3 (4.5-11.0) L 07/27/19 04:08 RBC 3.04 M/mm3 (3.65-5.03) L 07/27/19 04:08 Hgb 9.2 gm/dl (11.8-15.2) L 07/27/19 04:08 Hct 28.7 % (35.5-45.6) L 07/27/19 04:08 MCV 94 fl (84-94) 07/27/19 04:08 MCH 31 pg (28-32) 07/27/19 04:08 MCHC 32 % (32-34) 07/27/19 04:08 RDW 17.1 % (13.2-15.2) H 07/27/19 04:08 Plt Count 211 K/mm3 (140-440) 07/27/19 04:08 Lymph % (Auto) 27.1 % (13.4-35.0) 07/27/19 04:08 [place] % (Auto) 3.4 % (0.0-7.3) 07/27/19 04:08 Eos % (Auto) 0.0 % (0.0-4.3) 07/27/19 04:08 Baso % (Auto) 0.2 % (0.0-1.8) 07/27/19 04:08 Lymph # 0.8 K/mm3 (1.2-5.4) L 07/27/19 04:08 [place] # 0.1 K/mm3 (0.0-0.8) 07/27/19 04:08 Eos # 0.0 K/mm3 (0.0-0.4) 07/27/19 04:08 Baso # 0.0 K/mm3 (0.0-0.1) 07/27/19 04:08 Seg Neutrophils % 69.3 % (40.0-70.0) 07/27/19 04:08 Seg Neutrophils # 2.0 K/mm3 (1.8-7.7) 07/27/19 04:08 PT 14.5 Sec. (12.2-14.9) 07/26/19 15:26 INR 1.15 (0.87-1.13) H 07/26/19 15:26 APTT 39.7 Sec. (24.2-36.6) H 07/26/19 15:26 ABG pH 7.323 pH Units (7.350-7.450) L 07/26/19 16:40 ABG pCO2 98.2 mm Hg 07/26/19 16:40 ABG pO2 136.5 mm Hg (80.0-90.0) H 07/26/19 16:40 ABG HCO3 49.8 mmol/L (20.0-26.0) H 07/26/19 16:40 ABG O2 Saturation 98.2 % (95.0-99.0) 07/26/19 16:40 ABG O2 Content 12.8 (0.0-44) 07/26/19 16:40 ABG Base Excess 20.3 mmol/L (-2.0-3.0) H 07/26/19 16:40 ABG Hemoglobin 9.3 gm/dl (14.0-18.0) L 07/26/19 16:40 ABG Carboxyhemoglobin 2.3 % (0.0-5.0) 07/26/19 16:40 ABG Methemoglobin 0.2 % (0.0-1.5) 07/26/19 16:40 Oxyhemoglobin 95.8 % (95.0-99.0) 07/26/19 16:40 FiO2 28 % 07/26/19 16:40 Sodium 142 mmol/L (137-145) 07/28/19 03:36 Potassium 4.2 mmol/L (3.6-5.0) 07/28/19 03:36 Chloride 95.9 mmol/L (98-107) L 07/28/19 03:36 Carbon Dioxide 38 mmol/L (22-30) H 07/28/19 03:36 Anion Gap 12 mmol/L 07/28/19 03:36 BUN 9 mg/dL (9-20) 07/28/19 03:36 Creatinine 0.6 mg/dL (0.8-1.5) L 07/28/19 03:36 Estimated GFR > 60 ml/min 07/28/19 03:36 BUN/Creatinine Ratio 15 % 07/28/19 03:36 Glucose 135 mg/dL (75-100) H 07/28/19 03:36 Hemoglobin A1c 4.6 % (4-6) 07/26/19 15:26 Calcium 8.4 mg/dL (8.4-10.2) 07/28/19 03:36 Magnesium 1.80 mg/dL (1.7-2.3) 07/26/19 15:26 Total Bilirubin 0.60 mg/dL (0.1-1.2) 07/28/19 03:36 AST 52 units/L (5-40) H 07/28/19 03:36 ALT 62 units/L (7-56) H 07/28/19 03:36 Alkaline Phosphatase 158 units/L (35-129) H 07/28/19 03:36 Troponin T < 0.010 ng/mL (0.00-0.029) 07/26/19 15:26 NT-Pro-B Natriuret Pep 147.1 pg/mL (0-900) 07/26/19 15:26 Total Protein 5.8 g/dL (6.3-8.2) L 07/28/19 03:36 Albumin 3.0 g/dL (3.9-5) L 07/28/19 03:36 Albumin/Globulin Ratio 1.1 % 07/28/19 03:36 Urine Color Yellow (Yellow) 07/26/19 04:35 Urine Turbidity Slightly-cloudy (Clear) 07/26/19 04:35 Urine pH 8.0 (5.0-7.0) H 07/26/19 04:35 Ur Specific [place] 1.014 (1.003-1.030) 07/26/19 04:35 Urine Protein <15 mg/dl mg/dL (Negative) 07/26/19 04:35 Urine Glucose (UA) Neg mg/dL (Negative) 07/26/19 04:35 Urine Ketones Tr mg/dL (Negative) 07/26/19 04:35 Urine Blood Neg (Negative) 07/26/19 04:35 Urine Nitrite Neg (Negative) 07/26/19 04:35 Urine Bilirubin Neg (Negative) 07/26/19 04:35 Urine Urobilinogen 2.0 mg/dL (<2.0) 07/26/19 04:35 Ur Leukocyte Esterase Tr (Negative) 07/26/19 04:35 Urine WBC (Auto) 7.0 /HPF (0.0-6.0) H 07/26/19 04:35 Urine RBC (Auto) 1.0 /HPF (0.0-6.0) 07/26/19 04:35 U Epithel Cells (Auto) 1.0 /HPF (0-13.0) 07/26/19 04:35 Urine Bacteria (Auto) 1+ /HPF (Negative) 07/26/19 04:35 Urine Mucus Few /HPF 07/26/19 04:35 Microbiology: Microbiology 07/26/19 15:26 Peripheral/Venous Blood Culture - Preliminary NO GROWTH AFTER 48 HOURS 07/26/19 15:26 Peripheral/Venous Blood Culture - Preliminary NO GROWTH AFTER 48 HOURS [place]/IV: Voiding Method Urinal IV Catheter Type [Right Peripheral IV Forearm] IV Catheter Type [Left INT / Saline Lock Antecubital] Active Medications - Current Medications Current Medications: Generic Name Dose Route Start Last Admin Trade Name Freq PRN Reason Stop Dose Admin Acetaminophen 650 mg 07/26/19 20:59 Tylenol PO Q4H PRN Pain MILD(1-3)/Fever >100.5/DOUGLAS Albuterol 2.5 mg 07/26/19 21:16 Proventil IH Q3HRT PRN Wheezing Albuterol/Ipratropium 1 ampul 07/28/19 14:00 07/28/19 20:22 Duoneb *Not For Prn Use* IH Not Given TIDRT NANCY Arformoterol Tartrate 15 mcg 07/27/19 20:00 07/28/19 20:22 Brovana Nebu IH 15 mcg Q12HRT NANCY Administration Budesonide 0.5 mg 07/27/19 20:00 07/28/19 20:22 Pulmicort IH 0.5 mg Q12HRT NANCY Administration Famotidine 20 mg 07/27/19 22:00 07/28/19 10:07 Pepcid PO 20 mg BID NANCY Administration Heparin Sodium (Porcine) 5,000 unit 07/26/19 22:00 07/28/19 10:07 Heparin SUB-Q 5,000 unit Q12HR NANCY Administration Hydromorphone HCl 0.5 mg 07/26/19 21:01 07/27/19 18:05 Dilaudid IV 0.5 mg Q3H PRN Administration Pain , Severe (7-10) Levofloxacin 750 mg 07/28/19 22:00 Levaquin PO 07/30/19 22:01 Q24H NANCY Methylprednisolone Sodium Succinate 80 mg 07/26/19 22:00 07/28/19 14:04 Solu-Medrol IV 80 mg Q8HR NANCY Administration Metoclopramide HCl 10 mg 07/26/19 21:01 Reglan IV Q6H PRN Nausea And Vomiting Ondansetron HCl 4 mg 07/26/19 20:59 Zofran IV Q8H PRN Nausea And Vomiting Oxycodone/Acetaminophen 1 tab 07/26/19 21:01 07/27/19 09:45 Percocet 5/325 PO 1 tab Q6H PRN Administration Pain, Moderate (4-6) Sodium Chloride 10 ml 07/26/19 22:00 07/28/19 10:08 Sodium Chloride Flush Syringe 10 Ml IV 10 ml BID NANCY Administration Sodium Chloride 10 ml 07/26/19 20:59 Sodium Chloride Flush Syringe 10 Ml IV PRN PRN LINE FLUSH Zolpidem Tartrate 5 mg 07/26/19 21:01 Ambien PO QHS PRN Insomnia Nutrition/Malnutrition Assess - Dietary Evaluation Nutrition/Malnutrition Findings: Nutrition Notes Start: 07/27/19 14:32 Freq: Status: Active Protocol: Document 07/27/19 14:32 LM (Rec: 07/27/19 14:45 LM [email or web address]) Nutrition Notes Need for Assessment generated from: Low BMI Initial or Follow up Assessment Current Diagnosis COPD Other Pertinent Diagnosis ARF Current Diet Cardiac Labs/Tests Reviewed Pertinent Medications NaCl at 125ml/hr Solu-Medrol Height 5 ft 9 in Weight 45.359 kg [place] Body Weight (kg) 72.72 BMI 14.8 Weight Status Emaciated Subjective/Other Information Screen for low BMI. Pt with good appetite. Pt stated his UBW is 157 lb and beleives he weighed this 1 year ago. Pt also stated he lost 40 lb in 2 -3 months. Pt stated he loses and gains wt frequently. Pt with significant muscle and fat wasting. Pt would like double portions and Ensure. 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 No Is Patient Ambulatory and/or Out of Bed No REE-([place]. Jeor-confined to bed) 1468.644 Kcal/Kg value to use for calculation 43 Approximate Energy Requirements Using 1950 kcal/Kg Calculation Used for Recommendations Kcal/kg Additional Notes Protein: 54-68g (1.2-1.5g/kg) Fluid: 1ml/kcal Nutrition Intervention Change Diet Order: Continue cardiac with double portions Add Supplement/Snack (indicate name/kcal Ensure Enlive strawberry TID /protein ) Provides kCal: 1,050 Provides Protein (gm) 60 Goal #1 Meet at least 80% of energy and protein needs Anticipated Discharge Needs: Cardiac with ONS TID Follow-Up By: 07/29/19 Additional Comments F/U for PO/ONS intakes
[2019-07-28] MEDS: levoFLOXacin 750 MG TAB PO SCH (21:48)
[2019-07-29] MEDS: methylPREDNISolone Sod Succinate 125 MG/2 ML INJ IV SCH ×3 (05:16→22:40)
[2019-07-29] MEDS: IPRATROPIUM/ALBUTEROL SULFATE 3 ML AMPUL.NEB IH SCH ×3 (08:23→20:26)
[2019-07-29] MEDS: ARFORMOTEROL 15 MCG/2 ML NEBU IH SCH ×2 (08:23→20:26)
[2019-07-29] MEDS: BUDESONIDE 0.5 MG/2 ML NEBU IH SCH ×2 (08:23→20:26)
--- NOTE | 2019-07-29 09:48 | Progress Note ---
Assessment and Plan 68 y/o male with COPD exacerbation. Continue steroids at current dosing. Will start to wean tomorrow. Continue BID pulmicort and brovana therapy. Currently scheduled duonebs, will change to just scheduled ipratroprium Await CM to give name of lung specialist. They were not able to find Given hypercapnea on admission and patient requesting frequently to be on PPV even during the day, suggest CM consult for trilogy. Patient requires volume ventilation and all other alternative therapies have been considered and ruled out due to the severity of the illness and life threatening conditions including CO2 retention. Due to increased probability of acute exacerbation, patient requires mouthpiece ventilation to be used during the the day as needed, in additions to QHS usage with facemask. Patient suffers from chronic respiratory failure secondary to COPD. Subjective Date of service: 07/29/19 Interval history: No acute events. patient asked to be placed on bipap this am. No desats, no documented distress. Guess he feels he breaths better with bipap. Objective Vital Signs - 12hr 07/28/19 07/29/19 07/29/19 22:46 04:08 07:44 Temperature 98.5 F 98.4 F 97.5 F L Pulse Rate 93 H 84 75 Pulse Rate [ Anterior Bilateral Throughout] Respiratory 19 19 18 Rate Respiratory Rate [Anterior Bilateral Throughout] Blood Pressure 105/64 102/69 117/73 O2 Sat by Pulse 100 100 100 Oximetry 07/29/19 07/29/19 08:27 09:20 Temperature Pulse Rate 104 H Pulse Rate [ 80 Anterior Bilateral Throughout] Respiratory 21 Rate Respiratory 20 Rate [Anterior Bilateral Throughout] Blood Pressure O2 Sat by Pulse 100 100 Oximetry Constitutional: no acute distress, alert, other (thin and cachectic) Eyes: non-icteric ENT: other (clear but poor dentition) Neck: supple Ascultation: Bilateral: diminished breath sounds, wheezes Percussion: Bilateral: not dull Tactile fremitus: Bilateral: normal Cardiovascular: regular rate and rhythm Gastrointestinal: normoactive bowel sounds, soft Extremities: no edema CBC and BMP: 07/27/19 04:08 07/28/19 03:36 ABG, PT/INR, D-dimer: ABG ABG pH 7.323 pH Units (7.350-7.450) L 07/26/19 16:40 ABG pCO2 98.2 mm Hg 07/26/19 16:40 ABG pO2 136.5 mm Hg (80.0-90.0) H 07/26/19 16:40 ABG O2 Saturation 98.2 % (95.0-99.0) 07/26/19 16:40 PT/INR, D-dimer PT 14.5 Sec. (12.2-14.9) 07/26/19 15:26 INR 1.15 (0.87-1.13) H 07/26/19 15:26 Abnormal lab findings: Abnormal Labs 07/26/19 07/26/19 07/26/19 04:35 15:26 15:26 WBC RBC 3.33 L Hgb 10.2 L Hct 31.7 L MCV 95 H RDW 17.4 H Lymph % (Auto) 39.3 H [place] % (Auto) 13.5 H Lymph # [place] # 0.9 H INR APTT ABG pH ABG pO2 ABG HCO3 ABG Base Excess ABG Hemoglobin Chloride 88.8 L Carbon Dioxide 42 H* BUN Creatinine 0.7 L Glucose 112 H AST 86 H ALT 83 H Alkaline Phosphatase 224 H Total Protein 5.9 L Albumin 3.4 L Urine pH 8.0 H Urine WBC (Auto) 7.0 H 07/26/19 07/26/19 07/27/19 15:26 16:40 04:08 WBC 2.8 L RBC 3.04 L Hgb 9.2 L Hct 28.7 L MCV RDW 17.1 H Lymph % (Auto) [place] % (Auto) Lymph # 0.8 L [place] # INR 1.15 H APTT 39.7 H ABG pH 7.323 L ABG pO2 136.5 H ABG HCO3 49.8 H ABG Base Excess 20.3 H ABG Hemoglobin 9.3 L Chloride Carbon Dioxide BUN Creatinine Glucose AST ALT Alkaline Phosphatase Total Protein Albumin Urine pH Urine WBC (Auto) 07/27/19 07/28/19 04:08 03:36 WBC RBC Hgb Hct MCV RDW Lymph % (Auto) [place] % (Auto) Lymph # [place] # INR APTT ABG pH ABG pO2 ABG HCO3 ABG Base Excess ABG Hemoglobin Chloride 93.7 L 95.9 L Carbon Dioxide 39 H 38 H BUN 7 L Creatinine 0.7 L 0.6 L Glucose 113 H 135 H AST 66 H 52 H ALT 71 H 62 H Alkaline Phosphatase 195 H 158 H Total Protein 5.7 L 5.8 L Albumin 3.2 L 3.0 L Urine pH Urine WBC (Auto)
[2019-07-29] MEDS: oxyCODONE /ACETAMINOPHEN 5-325MG TAB PO PRN (10:32)
[2019-07-29] MEDS: HEPARIN 5,000 UNIT/1 ML VIAL SUB-Q SCH ×2 (10:33→22:40)
[2019-07-29] MEDS: FAMOTIDINE 20 MG TAB PO SCH ×2 (10:33→22:40)
--- NOTE | 2019-07-29 21:24 | Progress Note ---
Assessment and Plan Assessment and plan: -Acute exacerbation of COPD; Oxygen, BiPAP as needed, nebulizers IV steroids, inhalation steroids and supportive care --Acute on chronic hypoxic respiratory failure; Requiring BiPAP, patient feels slightly better Home oxygen dependent Continue O2 , maintain O2 sats more than 92% Pulmonary following --Transaminitis; unknown etiology Trending down, closely monitor LFTs Abdominal ultrasound and GI evaluation if no improvement --Severe malnutrition; cachexia; BMI 14.8 Nutrition supplements, nutritional consult --DVT prophylaxis; heparin --Full CODE STATUS DC planning per case management; CM assisting DC planning Home oxygen evaluation, pulmonary recommend trilogy And in the network pulmonology follow-up appointment Patient strongly advised to comply with medications and follow-up visits Closely monitor the patient and adjust management as needed Plan of care reviewed with the patient and his nurse Disposition :possible discharge in 1 to 2 days if stable And cleared by pulmonary History Interval history: Patient seen and examined at the bedside today Patient's chart and medications reviewed, Patient states that he feels much better still has some shortness of breath and cough Denies chest pain or palpitation, Vital signs noted Hospitalist Physical - Constitutional Vitals: Temp Pulse Resp BP Pulse Ox 98.4 F 85 20 120/73 99 07/29/19 19:19 07/29/19 20:00 07/29/19 20:00 07/29/19 19:19 07/29/19 20:27 General appearance: Present: no acute distress, cachectic, disheveled, other (Emaciated) - EENT Eyes: Present: PERRL, EOM intact - Neck Neck: Present: supple, normal ROM - Respiratory Respiratory effort: normal Respiratory: bilateral: diminished, rhonchi, negative: rales, wheezing - Cardiovascular Rhythm: regular Heart Sounds: Present: S1 & S2 - Extremities Extremities: no ischemia, No edema - Abdominal General gastrointestinal: soft, non-tender, non-distended, normal bowel sounds - Integumentary Integumentary: Present: clear, warm - Psychiatric Psychiatric: appropriate mood/affect, cooperative - Neurologic Neurologic: CNII-XII intact, moves all extremities HEART Score - HEART Score Troponin: Troponin T < 0.010 ng/mL (0.00-0.029) 07/26/19 15:26 Results - Labs CBC & Chem 7: 07/27/19 04:08 07/28/19 03:36 Labs: Laboratory Last Values WBC 2.8 K/mm3 (4.5-11.0) L 07/27/19 04:08 RBC 3.04 M/mm3 (3.65-5.03) L 07/27/19 04:08 Hgb 9.2 gm/dl (11.8-15.2) L 07/27/19 04:08 Hct 28.7 % (35.5-45.6) L 07/27/19 04:08 MCV 94 fl (84-94) 07/27/19 04:08 MCH 31 pg (28-32) 07/27/19 04:08 MCHC 32 % (32-34) 07/27/19 04:08 RDW 17.1 % (13.2-15.2) H 07/27/19 04:08 Plt Count 211 K/mm3 (140-440) 07/27/19 04:08 Lymph % (Auto) 27.1 % (13.4-35.0) 07/27/19 04:08 [place] % (Auto) 3.4 % (0.0-7.3) 07/27/19 04:08 Eos % (Auto) 0.0 % (0.0-4.3) 07/27/19 04:08 Baso % (Auto) 0.2 % (0.0-1.8) 07/27/19 04:08 Lymph # 0.8 K/mm3 (1.2-5.4) L 07/27/19 04:08 [place] # 0.1 K/mm3 (0.0-0.8) 07/27/19 04:08 Eos # 0.0 K/mm3 (0.0-0.4) 07/27/19 04:08 Baso # 0.0 K/mm3 (0.0-0.1) 07/27/19 04:08 Seg Neutrophils % 69.3 % (40.0-70.0) 07/27/19 04:08 Seg Neutrophils # 2.0 K/mm3 (1.8-7.7) 07/27/19 04:08 PT 14.5 Sec. (12.2-14.9) 07/26/19 15:26 INR 1.15 (0.87-1.13) H 07/26/19 15:26 APTT 39.7 Sec. (24.2-36.6) H 07/26/19 15:26 ABG pH 7.323 pH Units (7.350-7.450) L 07/26/19 16:40 ABG pCO2 98.2 mm Hg 07/26/19 16:40 ABG pO2 136.5 mm Hg (80.0-90.0) H 07/26/19 16:40 ABG HCO3 49.8 mmol/L (20.0-26.0) H 07/26/19 16:40 ABG O2 Saturation 98.2 % (95.0-99.0) 07/26/19 16:40 ABG O2 Content 12.8 (0.0-44) 07/26/19 16:40 ABG Base Excess 20.3 mmol/L (-2.0-3.0) H 07/26/19 16:40 ABG Hemoglobin 9.3 gm/dl (14.0-18.0) L 07/26/19 16:40 ABG Carboxyhemoglobin 2.3 % (0.0-5.0) 07/26/19 16:40 ABG Methemoglobin 0.2 % (0.0-1.5) 07/26/19 16:40 Oxyhemoglobin 95.8 % (95.0-99.0) 07/26/19 16:40 FiO2 28 % 07/26/19 16:40 Sodium 142 mmol/L (137-145) 07/28/19 03:36 Potassium 4.2 mmol/L (3.6-5.0) 07/28/19 03:36 Chloride 95.9 mmol/L (98-107) L 07/28/19 03:36 Carbon Dioxide 38 mmol/L (22-30) H 07/28/19 03:36 Anion Gap 12 mmol/L 07/28/19 03:36 BUN 9 mg/dL (9-20) 07/28/19 03:36 Creatinine 0.6 mg/dL (0.8-1.5) L 07/28/19 03:36 Estimated GFR > 60 ml/min 07/28/19 03:36 BUN/Creatinine Ratio 15 % 07/28/19 03:36 Glucose 135 mg/dL (75-100) H 07/28/19 03:36 Hemoglobin A1c 4.6 % (4-6) 07/26/19 15:26 Calcium 8.4 mg/dL (8.4-10.2) 07/28/19 03:36 Magnesium 1.80 mg/dL (1.7-2.3) 07/26/19 15:26 Total Bilirubin 0.60 mg/dL (0.1-1.2) 07/28/19 03:36 AST 52 units/L (5-40) H 07/28/19 03:36 ALT 62 units/L (7-56) H 07/28/19 03:36 Alkaline Phosphatase 158 units/L (35-129) H 07/28/19 03:36 Troponin T < 0.010 ng/mL (0.00-0.029) 07/26/19 15:26 NT-Pro-B Natriuret Pep 147.1 pg/mL (0-900) 07/26/19 15:26 Total Protein 5.8 g/dL (6.3-8.2) L 07/28/19 03:36 Albumin 3.0 g/dL (3.9-5) L 07/28/19 03:36 Albumin/Globulin Ratio 1.1 % 07/28/19 03:36 Urine Color Yellow (Yellow) 07/26/19 04:35 Urine Turbidity Slightly-cloudy (Clear) 07/26/19 04:35 Urine pH 8.0 (5.0-7.0) H 07/26/19 04:35 Ur Specific [place] 1.014 (1.003-1.030) 07/26/19 04:35 Urine Protein <15 mg/dl mg/dL (Negative) 07/26/19 04:35 Urine Glucose (UA) Neg mg/dL (Negative) 07/26/19 04:35 Urine Ketones Tr mg/dL (Negative) 07/26/19 04:35 Urine Blood Neg (Negative) 07/26/19 04:35 Urine Nitrite Neg (Negative) 07/26/19 04:35 Urine Bilirubin Neg (Negative) 07/26/19 04:35 Urine Urobilinogen 2.0 mg/dL (<2.0) 07/26/19 04:35 Ur Leukocyte Esterase Tr (Negative) 07/26/19 04:35 Urine WBC (Auto) 7.0 /HPF (0.0-6.0) H 07/26/19 04:35 Urine RBC (Auto) 1.0 /HPF (0.0-6.0) 07/26/19 04:35 U Epithel Cells (Auto) 1.0 /HPF (0-13.0) 07/26/19 04:35 Urine Bacteria (Auto) 1+ /HPF (Negative) 07/26/19 04:35 Urine Mucus Few /HPF 07/26/19 04:35 Microbiology: Microbiology 07/26/19 15:26 Peripheral/Venous Blood Culture - Preliminary NO GROWTH AFTER 72 HOURS 07/26/19 15:26 Peripheral/Venous Blood Culture - Preliminary NO GROWTH AFTER 72 HOURS [place]/IV: Voiding Method Urinal IV Catheter Type [Right Peripheral IV Forearm] IV Catheter Type [Left INT / Saline Lock Antecubital] Active Medications - Current Medications Current Medications: Generic Name Dose Route Start Last Admin Trade Name Freq PRN Reason Stop Dose Admin Acetaminophen 650 mg 07/26/19 20:59 Tylenol PO Q4H PRN Pain MILD(1-3)/Fever >100.5/DOUGLAS Albuterol 2.5 mg 07/26/19 21:16 Proventil IH Q3HRT PRN Wheezing Albuterol/Ipratropium 1 ampul 07/28/19 14:00 07/29/19 20:26 Duoneb *Not For Prn Use* IH 1 ampul TIDRT NANCY Administration Arformoterol Tartrate 15 mcg 07/27/19 20:00 07/29/19 20:26 Brovana Nebu IH 15 mcg Q12HRT NANCY Administration Budesonide 0.5 mg 07/27/19 20:00 07/29/19 20:26 Pulmicort IH 0.5 mg Q12HRT NANCY Administration Famotidine 20 mg 07/27/19 22:00 07/29/19 10:33 Pepcid PO 20 mg BID NANCY Administration Heparin Sodium (Porcine) 5,000 unit 07/26/19 22:00 07/29/19 10:33 Heparin SUB-Q 5,000 unit Q12HR NANCY Administration Hydromorphone HCl 0.5 mg 07/26/19 21:01 07/27/19 18:05 Dilaudid IV 0.5 mg Q3H PRN Administration Pain , Severe (7-10) Levofloxacin 750 mg 07/28/19 22:00 07/28/19 21:48 Levaquin PO 07/30/19 22:01 750 mg Q24H NANCY Administration Methylprednisolone Sodium Succinate 80 mg 07/26/19 22:00 07/29/19 18:00 Solu-Medrol IV Not Given Q8HR NANCY Metoclopramide HCl 10 mg 07/26/19 21:01 Reglan IV Q6H PRN Nausea And Vomiting Ondansetron HCl 4 mg 07/26/19 20:59 Zofran IV Q8H PRN Nausea And Vomiting Oxycodone/Acetaminophen 1 tab 07/26/19 21:01 07/29/19 10:32 Percocet 5/325 PO 1 tab Q6H PRN Administration Pain, Moderate (4-6) Sodium Chloride 10 ml 07/26/19 22:00 07/29/19 10:33 Sodium Chloride Flush Syringe 10 Ml IV 10 ml BID NANCY Administration Sodium Chloride 10 ml 07/26/19 20:59 Sodium Chloride Flush Syringe 10 Ml IV PRN PRN LINE FLUSH Zolpidem Tartrate 5 mg 07/26/19 21:01 Ambien PO QHS PRN Insomnia Nutrition/Malnutrition Assess - Dietary Evaluation Nutrition/Malnutrition Findings: Nutrition Notes Start: 07/27/19 14:32 Freq: Status: Active Protocol: Document 07/29/19 12:27 LP (Rec: 07/29/19 12:30 LP [id number]) Nutrition Notes Initial or Follow up Reassessment Current Diagnosis COPD,Respiratory Failure Current Diet Cardiac with double portions Labs/Tests Reviewed Pertinent Medications Reviewed Height 5 ft 9 in Weight 45.359 kg [place] Body Weight (kg) 72.72 BMI 14.8 Weight Status Emaciated Subjective/Other Information Pt eating very well and drinking all of supplements. Pt states he would like a banana daily. Percent of energy/protein needs met: 100%/100% Burn Absent Trauma Absent GI Symptoms None Current % PO Good (75-100%) Minimum of two criteria Yes Interpretation of Weight Loss (severe) > 20% in 1 year Body Fat Depletion Mild depletion (non-severe) Muscle Mass Mild Depletion (non-severe) Reduced [employer] Strength Measurably Reduced (severe) #1 Nutrition Diagnosis Malnutrition Diagnosis Progress(for reassessment Continues documentation) Is patient on ventilator? No Is Patient Ambulatory and/or Out of Bed No REE-([place]-St. Jeor-confined to bed) 1468.644 Kcal/Kg value to use for calculation 43 Approximate Energy Requirements Using 1950 kcal/Kg Calculation Used for Recommendations Kcal/kg Additional Notes Protein: 54-68g (1.2-1.5g/kg) Fluid: 1ml/kcal Nutrition Intervention Change Diet Order: Continue cardiac with double portions Add Supplement/Snack (indicate name/kcal Ensure Enlive strawberry TID /protein ) Provides kCal: 1,050 Provides Protein (gm) 60 Goal #1 Meet at least 80% of energy and protein needs Goal #2 Wt gain/maintenance Anticipated Discharge Needs: Cardiac double portions with ONS TID Follow-Up By: 08/04/19 Additional Comments Follow for stable intakes /wt
[2019-07-29] MEDS: levoFLOXacin 750 MG TAB PO SCH (22:39)
[2019-07-30] MEDS: methylPREDNISolone Sod Succinate 125 MG/2 ML INJ IV SCH ×3 (06:49→22:08)
[2019-07-30] MEDS: BUDESONIDE 0.5 MG/2 ML NEBU IH SCH ×2 (08:14→20:43)
[2019-07-30] MEDS: ARFORMOTEROL 15 MCG/2 ML NEBU IH SCH ×2 (08:14→20:43)
[2019-07-30] MEDS: IPRATROPIUM/ALBUTEROL SULFATE 3 ML AMPUL.NEB IH SCH ×3 (08:14→20:43)
[2019-07-30] MEDS: FAMOTIDINE 20 MG TAB PO SCH ×2 (09:04→22:08)
[2019-07-30] MEDS: HEPARIN 5,000 UNIT/1 ML VIAL SUB-Q SCH ×2 (09:04→22:08)
--- NOTE | 2019-07-30 09:59 | Progress Note ---
Assessment and Plan 68 y/o male with COPD exacerbation. 07/30/2019 1. Will drop steroids to 40q8 starting today 2. Continue BID pulmicort and brovana therapy 3. Continue scheduled ipratroprium 4. Despite patient refusal of PPV last night, still feel warranted patient should be discharged to home with trilogy 5. Follow up in office 7-10 days post discharge 6. Hopeful discharge in the next 24-48 hours. Given hypercapnea on admission and patient requesting frequently to be on PPV even during the day, suggest CM consult for trilogy. Patient requires volume ventilation and all other alternative therapies have been considered and ruled out due to the severity of the illness and life threatening conditions including CO2 retention. Due to increased probability of acute exacerbation, patient requires mouthpiece ventilation to be used during the the day as needed, in additions to QHS usage with facemask. Patient suffers from chronic respiratory failure secondary to COPD. Subjective Date of service: 07/30/19 Interval history: Patient refused bipap last night. I have already filled out the paper work for patient to receive trilogy as he qualifies based on his admission abg. Satting well on 3 liters [place] which I think is his baseline. Objective Vital Signs - 12hr 07/29/19 07/30/19 07/30/19 23:06 03:47 04:00 Temperature 97.2 F L 98.1 F Pulse Rate 78 72 72 Respiratory 20 18 Rate Blood Pressure 139/73 101/55 O2 Sat by Pulse 96 99 Oximetry 07/30/19 07:50 Temperature 98.6 F Pulse Rate 63 Respiratory 20 Rate Blood Pressure 115/68 O2 Sat by Pulse 98 Oximetry Constitutional: no acute distress, alert, other (thin and cachectic) Eyes: non-icteric ENT: other (clear but poor dentition) Neck: supple Ascultation: Bilateral: diminished breath sounds, wheezes Percussion: Bilateral: not dull Tactile fremitus: Bilateral: normal Cardiovascular: regular rate and rhythm Gastrointestinal: normoactive bowel sounds, soft Extremities: no edema CBC and BMP: 07/27/19 04:08 07/28/19 03:36 ABG, PT/INR, D-dimer: ABG ABG pH 7.323 pH Units (7.350-7.450) L 07/26/19 16:40 ABG pCO2 98.2 mm Hg 07/26/19 16:40 ABG pO2 136.5 mm Hg (80.0-90.0) H 07/26/19 16:40 ABG O2 Saturation 98.2 % (95.0-99.0) 07/26/19 16:40 PT/INR, D-dimer PT 14.5 Sec. (12.2-14.9) 07/26/19 15:26 INR 1.15 (0.87-1.13) H 07/26/19 15:26 Abnormal lab findings: Abnormal Labs 07/26/19 07/26/19 07/26/19 04:35 15:26 15:26 WBC RBC 3.33 L Hgb 10.2 L Hct 31.7 L MCV 95 H RDW 17.4 H Lymph % (Auto) 39.3 H [place] % (Auto) 13.5 H Lymph # [place] # 0.9 H INR APTT ABG pH ABG pO2 ABG HCO3 ABG Base Excess ABG Hemoglobin Chloride 88.8 L Carbon Dioxide 42 H* BUN Creatinine 0.7 L Glucose 112 H AST 86 H ALT 83 H Alkaline Phosphatase 224 H Total Protein 5.9 L Albumin 3.4 L Urine pH 8.0 H Urine WBC (Auto) 7.0 H 07/26/19 07/26/19 07/27/19 15:26 16:40 04:08 WBC 2.8 L RBC 3.04 L Hgb 9.2 L Hct 28.7 L MCV RDW 17.1 H Lymph % (Auto) [place] % (Auto) Lymph # 0.8 L [place] # INR 1.15 H APTT 39.7 H ABG pH 7.323 L ABG pO2 136.5 H ABG HCO3 49.8 H ABG Base Excess 20.3 H ABG Hemoglobin 9.3 L Chloride Carbon Dioxide BUN Creatinine Glucose AST ALT Alkaline Phosphatase Total Protein Albumin Urine pH Urine WBC (Auto) 07/27/19 07/28/19 04:08 03:36 WBC RBC Hgb Hct MCV RDW Lymph % (Auto) [place] % (Auto) Lymph # [place] # INR APTT ABG pH ABG pO2 ABG HCO3 ABG Base Excess ABG Hemoglobin Chloride 93.7 L 95.9 L Carbon Dioxide 39 H 38 H BUN 7 L Creatinine 0.7 L 0.6 L Glucose 113 H 135 H AST 66 H 52 H ALT 71 H 62 H Alkaline Phosphatase 195 H 158 H Total Protein 5.7 L 5.8 L Albumin 3.2 L 3.0 L Urine pH Urine WBC (Auto)
--- NOTE | 2019-07-30 16:05 | Progress Note ---
Assessment and Plan /Acute exacerbation of COPD; cont supplemental oxygen, BiPAP as needed, scheduled nebulizers, tapering IV steroids, inhalation steroids and supportive care /Acute on chronic hypoxic respiratory failure; Requiring BiPAP, patient feels slightly better Home oxygen dependent 2 to 3 L Continue supplemental O2 , maintain O2 sats more than 92% Pulmonary following and recommended trilogy on discharge /Transaminitis; unknown etiology Trending down, closely monitor LFTs Abdominal ultrasound and GI evaluation if no improvement /Severe malnutrition; cachexia; BMI 14.8 Added nutrition supplements, nutritional consulted --DVT prophylaxis; heparin --Full CODE STATUS Patient strongly advised to comply with medications and follow-up visits Plan of care reviewed with the patient, CM and his nurse Needs trilogy on discharge Disposition: possible discharge in 1 to 2 days when cleared by pulmonary Hospitalist Physical General appearance: Present: no acute distress, cachectic, disheveled, other (Em aciated) - EENT Eyes: Present: PERRL, EOM intact - Neck Neck: Present: supple, normal ROM - Respiratory Respiratory effort: normal Respiratory: bilateral: diminished, rhonchi, negative: rales, wheezing - Cardiovascular Rhythm: regular Heart Sounds: Present: S1 & S2 - Extremities Extremities: no ischemia, No edema - Abdominal General gastrointestinal: soft, non-tender, non-distended, normal bowel sounds - Integumentary Integumentary: Present: clear, warm - Psychiatric Psychiatric: appropriate mood/affect, cooperative - Neurologic Neurologic: CNII-XII intact, moves all extremities Subjective Date of service: 07/30/19 Interval history: Patient seen and examined. Medical records and medication list reviewed. No acute event overnight noted by the RN. Patient c/o difficulty breathing on minimal exertion. Patient is tolerating diet. Discussed plan of care at bedside with patient. Pulmonology following and recommended trilogy on discharge Objective - Constitutional Vitals: Vital Signs - 12hr 07/30/19 07/30/19 07/30/19 07:50 08:00 10:37 Temperature 98.6 F Pulse Rate 63 85 Respiratory 20 21 Rate Blood Pressure 115/68 O2 Sat by Pulse 98 Oximetry - Labs CBC & Chem 7: 07/27/19 04:08 07/28/19 03:36 HEART Score - HEART Score Troponin: Troponin T < 0.010 ng/mL (0.00-0.029) 07/26/19 15:26
[2019-07-30] MEDS: levoFLOXacin 750 MG TAB PO SCH (22:11)
[2019-07-31] MEDS: methylPREDNISolone Sod Succinate 125 MG/2 ML INJ IV SCH (05:40)
[2019-07-31] MEDS: ARFORMOTEROL 15 MCG/2 ML NEBU IH SCH (07:21)
[2019-07-31] MEDS: BUDESONIDE 0.5 MG/2 ML NEBU IH SCH (07:21)
[2019-07-31] MEDS: IPRATROPIUM/ALBUTEROL SULFATE 3 ML AMPUL.NEB IH SCH ×2 (07:27→13:10)
[2019-07-31] MEDS: HEPARIN 5,000 UNIT/1 ML VIAL SUB-Q SCH (09:53)
[2019-07-31] MEDS: FAMOTIDINE 20 MG TAB PO SCH (09:53)
--- NOTE | 2019-07-31 09:57 | Progress Note ---
Assessment and Plan 68 y/o male with COPD exacerbation. 07/30/2019 1. if discharged today, please send out on Prednisone 60 daily for 3 days, 40 daily for 3 days, 20 daily for 3 days, then 10 daily for 3 days then stop. 2. Continue BID pulmicort and brovana therapy 3. Continue scheduled ipratroprium 4. Triology machine ordered and paper work signed by me personally. 5. Follow up in office 7-10 days post discharge 6. Hopeful discharge in the next 24hours if not today. Given hypercapnea on admission and patient requesting frequently to be on PPV e [place] during the day, suggest CM consult for trilogy. Patient requires volume ventilation and all other alternative therapies have been considered and ruled out due to the severity of the illness and life threatening conditions including CO2 retention. Due to increased probability of acute exacerbation, patient requires mouthpiece ventilation to be used during the the day as needed, in additions to QHS usage with facemask. Patient suffers from chronic respiratory failure secondary to COPD. Subjective Date of service: 07/31/19 Interval history: No acute events. Wore bipap last night. Not sure how long as when RT documented this am, when they came in the room he was off bipap. Objective Vital Signs - 12hr 07/30/19 07/30/19 07/30/19 22:00 23:00 23:28 Temperature 97.7 F Pulse Rate 91 H Pulse Rate [ Anterior Bilateral Throughout] Pulse Rate [ 120 H From Monitor] Respiratory 22 27 H 21 Rate Respiratory Rate [Anterior Bilateral Throughout] Blood Pressure Blood Pressure 111/67 [Left] O2 Sat by Pulse 99 100 Oximetry 07/31/19 07/31/19 07/31/19 04:00 06:22 07:27 Temperature 98.6 F Pulse Rate 86 86 Pulse Rate [ 86 Anterior Bilateral Throughout] Pulse Rate [ From Monitor] Respiratory 20 Rate Respiratory 20 Rate [Anterior Bilateral Throughout] Blood Pressure 133/83 Blood Pressure [Left] O2 Sat by Pulse 100 Oximetry 07/31/19 07/31/19 07:28 07:32 Temperature 98.0 F Pulse Rate 110 H Pulse Rate [ Anterior Bilateral Throughout] Pulse Rate [ From Monitor] Respiratory 20 Rate Respiratory Rate [Anterior Bilateral Throughout] Blood Pressure 156/92 Blood Pressure [Left] O2 Sat by Pulse 96 100 Oximetry Constitutional: no acute distress, alert, other (thin and cachectic) Eyes: non-icteric ENT: other (clear but poor dentition) Neck: supple Ascultation: Bilateral: diminished breath sounds, wheezes Percussion: Bilateral: not dull Tactile fremitus: Bilateral: normal Cardiovascular: regular rate and rhythm Gastrointestinal: normoactive bowel sounds, soft Extremities: no edema CBC and BMP: 07/27/19 04:08 07/28/19 03:36 ABG, PT/INR, D-dimer: ABG ABG pH 7.323 pH Units (7.350-7.450) L 07/26/19 16:40 ABG pCO2 98.2 mm Hg 07/26/19 16:40 ABG pO2 136.5 mm Hg (80.0-90.0) H 07/26/19 16:40 ABG O2 Saturation 98.2 % (95.0-99.0) 07/26/19 16:40 PT/INR, D-dimer PT 14.5 Sec. (12.2-14.9) 07/26/19 15:26 INR 1.15 (0.87-1.13) H 07/26/19 15:26 Abnormal lab findings: Abnormal Labs 07/26/19 07/26/19 07/26/19 04:35 15:26 15:26 WBC RBC 3.33 L Hgb 10.2 L Hct 31.7 L MCV 95 H RDW 17.4 H Lymph % (Auto) 39.3 H [place] % (Auto) 13.5 H Lymph # [place] # 0.9 H INR APTT ABG pH ABG pO2 ABG HCO3 ABG Base Excess ABG Hemoglobin Chloride 88.8 L Carbon Dioxide 42 H* BUN Creatinine 0.7 L Glucose 112 H AST 86 H ALT 83 H Alkaline Phosphatase 224 H Total Protein 5.9 L Albumin 3.4 L Urine pH 8.0 H Urine WBC (Auto) 7.0 H 07/26/19 07/26/19 07/27/19 15:26 16:40 04:08 WBC 2.8 L RBC 3.04 L Hgb 9.2 L Hct 28.7 L MCV RDW 17.1 H Lymph % (Auto) [place] % (Auto) Lymph # 0.8 L [place] # INR 1.15 H APTT 39.7 H ABG pH 7.323 L ABG pO2 136.5 H ABG HCO3 49.8 H ABG Base Excess 20.3 H ABG Hemoglobin 9.3 L Chloride Carbon Dioxide BUN Creatinine Glucose AST ALT Alkaline Phosphatase Total Protein Albumin Urine pH Urine WBC (Auto) 07/27/19 07/28/19 04:08 03:36 WBC RBC Hgb Hct MCV RDW Lymph % (Auto) [place] % (Auto) Lymph # [place] # INR APTT ABG pH ABG pO2 ABG HCO3 ABG Base Excess ABG Hemoglobin Chloride 93.7 L 95.9 L Carbon Dioxide 39 H 38 H BUN 7 L Creatinine 0.7 L 0.6 L Glucose 113 H 135 H AST 66 H 52 H ALT 71 H 62 H Alkaline Phosphatase 195 H 158 H Total Protein 5.7 L 5.8 L Albumin 3.2 L 3.0 L Urine pH Urine WBC (Auto)
--- NOTE | 2019-07-31 12:32 | Discharge Summary ---
Providers - Providers Date of Admission: 07/27/19 15:23 Date of discharge: 07/31/19 Attending physician: CHELSEA SILVA 07/27/19 09:14 Consult to Physician [CONS] Routine Comment: Consulting Provider: MARCY HUNT Physician Instructions: Reason For Exam: Ac. hypoxic/hypercap respiratory failure/COPD 07/30/19 08:24 Consult to Case Management [CONS] Routine Services Needed at Discharge: Other Notified:: ed case manager Additional Physician Instructions: need trilogy Primary care physician: SHOOTER HELPER Hospitalization Condition: Stable Hospital course: Patient is 68 years old male with history of COPD on 2-3L home O2 brought to the emergency room via EMS from home for evaluation of difficulty breathing and cough for the last 3 days. Patient stated that he has been using his albuterol with no improvement denied any fever, No exposure to quiroz virus. Patient was admitted to telemetry floor with scheduled nebs, BiPAP as needed, iv steroids and supplemental O2 to keep O2 sat at 94%. CXR showed no infiltrates. Patients symptom improved with medical management. Pulmonology was consulted and recommended trilogy on discharge. Patient was then discharged home in stable condition with outpt f/u and trilogy will be delivered to his home. Discharge diagnosis and management: /Acute exacerbation of COPD; Managed with supplemental oxygen, BiPAP as needed, scheduled nebulizers, tapering IV steroids, inhalation steroids and supportive care /Acute on chronic hypoxic respiratory failure; Due to COPD exacerbation Requiring BiPAP o/n, Home oxygen dependent 2 to 3 L Pulmonary following and recommended trilogy on discharge /Transaminitis; unknown etiology Trending down, closely monitored LFTs /Severe malnutrition; cachexia; BMI 14.8 Added nutrition supplements, nutritional consulted --DVT prophylaxis; heparin --Full CODE STATUS Disposition: Home with trilogy Hospitalist Physical General appearance: Present: no acute distress, cachectic, disheveled, other (Emaciated) - EENT Eyes: Present: PERRL, EOM intact - Neck Neck: Present: supple, normal ROM - Respiratory Respiratory effort: normal Respiratory: bilateral: diminished, rhonchi, negative: rales, wheezing - Cardiovascular Rhythm: regular Heart Sounds: Present: S1 & S2 - Extremities Extremities: no ischemia, No edema - Abdominal General gastrointestinal: soft, non-tender, non-distended, normal bowel sounds - Integumentary Integumentary: Present: clear, warm - Psychiatric Psychiatric: appropriate mood/affect, cooperative - Neurologic Neurologic: CNII-XII intact, moves all extremities Disposition: DC-30 STILL A PATIENT Time spent for discharge: 34 minutes Core Measure Documentation - Palliative Care Palliative Care/ Comfort Measures: Not Applicable - Core Measures Any of the following diagnoses?: none Exam - Constitutional Vitals: Temp Pulse Resp BP Pulse Ox 98.0 F 110 H 20 146/92 100 07/31/19 07:32 07/31/19 10:00 07/31/19 10:00 07/31/19 07:32 07/31/19 07:32 Plan Activity: fall precautions Weight Bearing Status: Non-Weight Bearing Diet: regular Durable Medical Equipment Needed Upon Discharge: other (trilogy) Follow up with: PRIMARY CARE, [Primary Care Provider] - 3-5 Days Prescriptions: Prednisone [predniSONE 5 mg (6-Day Pack, 21 Tabs)] 5 mg PO .TAPER #1 tab.ds.pk Albuterol INH(or & Nicu Only) [ProAir HFA Inhaler] 2 puff IH QID PRN #8.5 gram PRN Reason: Shortness Of Breath Budesonide/Formoterol Fumarate [Symbicort 160-4.5 Mcg Inhaler] 10.2 gm IH BID #1 hfa.aer.ad Ipratropium/Albuterol Sulfate [DUONEB *Not for PRN Use*] 1 ampul IH TIDRT #30 ampul.neb
[2019-07-31] MEDS ORDERED: methylPREDNISolone Sod Succinate 40 MG/1 ML INJ IV SCH (14:00)
[2019-07-31 17:29] VITALS: BP 132/88
== END 2019-07-31 17:25 | disposition home health service (06) | DRG 189 ==
LOC: ED 14:23 → INTOOBSV 17:37 → 4A 17:37 → OBSVTOIN 07-27 15:23
PROVIDERS: ADMIT Internal Medicine; ATTEND Internal Medicine
PROC: 4A033R1 Measurement of Arterial Saturation, Peripheral, Percutaneous Approach (ICD-10-PCS; principal; 2019-07-26)
PROC: 5A09357 Assistance with Respiratory Ventilation, Less than 24 Consecutive Hours, Continuous Positive Airway Pressure (ICD-10-PCS; 2019-07-26)
PROC: 5A09357 Assistance with Respiratory Ventilation, Less than 24 Consecutive Hours, Continuous Positive Airway Pressure (ICD-10-PCS; 2019-07-27)
PROC: 5A09357 Assistance with Respiratory Ventilation, Less than 24 Consecutive Hours, Continuous Positive Airway Pressure (ICD-10-PCS; 2019-07-29)
PROC: 5A09357 Assistance with Respiratory Ventilation, Less than 24 Consecutive Hours, Continuous Positive Airway Pressure (ICD-10-PCS; 2019-07-30)
DX: J96.21 Acute and chronic respiratory failure with hypoxia (principal); E43 Unspecified severe protein-calorie malnutrition; J44.1 Chronic obstructive pulmonary disease with (acute) exacerbation; Z68.1 Body mass index [BMI] 19.9 or less, adult; R74.0 Nonspecific elevation of levels of transaminase and lactic acid dehydrogenase [LDH]; Z82.49 Family history of ischemic heart disease and other diseases of the circulatory system; Z99.81 Dependence on supplemental oxygen
CPT/HCPCS: 36415; 71045; 80053; 81001; 82803; 83036; 83735; 83880; 84484; 85025; 85610; 85730; 87040; 93005; 94640; 94644; 94660; 94760; G0378; J1170; J1644; J1956; J2920; J2930; J7030

== ENCOUNTER 2019-08-30 10:44 | Inpatient (IN) | payer MEDICARE ==
[2019-08-30] MEDS ORDERED: IPRATROPIUM/ALBUTEROL SULFATE 3 ML AMPUL.NEB IH ONE (16:43)
[2019-08-31] MEDS ORDERED: ONDANSETRON 4 MG/2 ML INJ IV PRN (00:23)
[2019-08-31] MEDS ORDERED: MAGNESIUM HYDROXIDE (MOM) ORAL LIQD UDC PO PRN (00:23)
[2019-08-31] MEDS ORDERED: ACETAMINOPHEN 325 MG TAB PO PRN (00:23)
[2019-08-31] MEDS ORDERED: MORPHINE 2 MG/1 ML INJ IV PRN (00:23)
[2019-08-31] MEDS ORDERED: methylPREDNISolone Sod Succinate 40 MG/1 ML INJ IV SCH (06:00)
--- NOTE | 2019-08-31 07:16 | History and Physical Report ---
History of Present Illness Date of examination: 08/30/19 Date of admission: 08/30/19 11:20 Chief complaint: SOB History of present illness: Patient is 68 years old male with history of COPD on 2-3L home O2 brought to the emergency room via EMS from home for evaluation of difficulty breathing. He was recently hospitalized with diagnosis of acute on chronic hypoxic respiratory failure and COPD exacerbation on 07/31/2019. He reports using a trilogy machine at night. The patient also report a cough of whitish sputum production that has progressively worsened. He denies fever and chills. It does not appear that he has had a recent COVID test or a test prior to his hospitalization in July. He denies any exposure to the virus. No nausea vomiting or diarrhea. No chest pain Past History Past Medical History: COPD, other (Chronic respiratory failure) Past Surgical History: No surgical history Social history: no significant social history Family history: no significant family history Medications and Allergies Allergies Allergy/AdvReac Type Severity Reaction Status Date / Time No Known Allergies Allergy Verified 07/26/19 15:33 Home Medications Medication Instructions Recorded Confirmed Last Taken Type Albuterol Mdi (or & Nicu Only) 2 puff IH QID PRN #8.5 gram 07/31/19 Unknown Rx [ProAir HFA Inhaler] Budesonide/Formoterol Fumarate 10.2 gm IH BID #1 hfa.aer.ad 07/31/19 Unknown Rx [Symbicort 160-4.5 Mcg Inhaler] Ipratropium/Albuterol Sulfate 1 ampul IH TIDRT #30 ampul.neb 07/31/19 Unknown Rx [DUONEB *Not for PRN Use*] Prednisone [predniSONE 5 mg (6-Day 5 mg PO .TAPER #1 tab.ds.pk 07/31/19 Unknown Rx Pack, 21 Tabs)] Azithromycin [Zithromax Z-AVRIL] 0 mg PO DAILY #6 tab 08/30/19 Unknown Rx predniSONE [Deltasone] 40 mg PO QDAY #14 tab 08/30/19 Unknown Rx Active Meds: Active Medications Acetaminophen (Tylenol) 650 mg PO Q4H PRN PRN Reason: Pain MILD(1-3)/Fever >100.5/DOUGLAS Albuterol/Ipratropium (Duoneb *Not For Prn Use*) 1 ampul IH Q4HRT NANCY Enoxaparin Sodium (Enoxaparin) 40 mg SUB-Q QDAY@2200 [facility] Magnesium Hydroxide (Milk Of Magnesia) 30 ml PO Q4H PRN PRN Reason: Constipation Methylprednisolone Sodium Succinate (Solu-Medrol) 40 mg IV Q8HR [facility] Last Admin: 08/31/19 06:06 Dose: 40 mg Documented by: Morphine Sulfate (Morphine) 2 mg IV Q4H PRN PRN Reason: Pain, Moderate (4-6) Ondansetron HCl (Zofran) 4 mg IV Q8H PRN PRN Reason: Nausea And Vomiting Sodium Chloride (Sodium Chloride Flush Syringe 10 Ml) 10 ml IV BID [facility] Sodium Chloride (Sodium Chloride Flush Syringe 10 Ml) 10 ml IV PRN PRN PRN Reason: LINE FLUSH Review of Systems All systems: negative Exam - Constitutional Vitals: Temp Pulse Resp BP Pulse Ox 87 18 107/68 100 08/31/19 01:00 08/31/19 01:00 08/31/19 01:00 08/31/19 01:00 General appearance: Present: no acute distress, well-nourished - EENT Eyes: Present: PERRL ENT: hearing intact, clear oral mucosa - Neck Neck: Present: supple, normal ROM - Respiratory Respiratory effort: normal Respiratory: bilateral: wheezing - Cardiovascular Heart Sounds: Present: S1 & S2. Absent: rub, click - Extremities Extremities: pulses symmetrical, No edema Peripheral Pulses: within normal limits - Abdominal General gastrointestinal: Present: soft, non-tender, non-distended, normal bowel sounds Male genitourinary: Present: normal - Integumentary Integumentary: Present: clear, warm, dry - Musculoskeletal Musculoskeletal: gait normal, strength equal bilaterally - Psychiatric Psychiatric: appropriate mood/affect, intact judgment & insight - Neurologic Neurologic: CNII-XII intact, moves all extremities Results Dale/IV: IV Catheter Type [Left Forearm INT / Saline Lock ] Assessment and Plan Assessment and plan: Acute on chronic hypercapnic respiratory failure. Patient with an ABG with PCO2 of 118. Continue BiPAP as clinically indicated. Will consult pulmonary for further evaluation. Chest x-ray shows no acute findings. Acute COPD exacerbation. Continue O2/BiPAP as clinically indicated, bronchodila tors/nebulizers and IV steroids. DVT prophylaxis. Lovenox daily. - Patient Problems (1) Acute and chronic respiratory failure Status: Acute Qualifiers: Respiratory failure complication: hypercapnia Qualified Code(s): J96.22 - Acute and chronic respiratory failure with hypercapnia (2) COPD exacerbation Status: Acute (3) DVT prophylaxis Status: Acute
--- NOTE | 2019-08-31 08:45 | Progress Note ---
Assessment and Plan Assessment and plan: Acute on chronic hypercapnic respiratory failure. Patient with an ABG with PCO2 of 118. Continue BiPAP as clinically indicated. Will consult pulmonary for further evaluation. Chest x-ray shows no acute findings. Acute COPD exacerbation. Continue O2/BiPAP as clinically indicated, bronchodilators/nebulizers and IV steroids. DVT prophylaxis. Lovenox daily. 08/31/2019. Continue bronchodilators/nebulizers and Solu-Medrol 40 mg IV every 8 hours. Continue BiPAP as clinically indicated. Pulmonary consulted. History Interval history: No new issues overnight Hospitalist Physical - Constitutional Vitals: Temp Pulse Resp BP Pulse Ox 98.8 F 88 16 120/69 100 08/31/19 07:22 08/31/19 07:22 08/31/19 07:22 08/31/19 07:22 08/31/19 07:22 General appearance: Present: no acute distress, well-nourished - EENT Eyes: Present: PERRL, EOM intact ENT: hearing intact, clear oral mucosa, dentition normal - Neck Neck: Present: supple, normal ROM - Respiratory Respiratory effort: normal Respiratory: bilateral: CTA - Cardiovascular Rhythm: regular Heart Sounds: Present: S1 & S2. Absent: gallop, rub - Extremities Extremities: no ischemia, No edema, Full ROM - Abdominal General gastrointestinal: soft, non-tender, non-distended, normal bowel sounds - Integumentary Integumentary: Present: clear, warm, dry - Neurologic Neurologic: CNII-XII intact, moves all extremities Results Dale/IV: IV Catheter Type [Left Forearm INT / Saline Lock ] Active Medications - Current Medications Current Medications: Generic Name Dose Route Start Last Admin Trade Name Freq PRN Reason Stop Dose Admin Acetaminophen 650 mg 08/31/19 00:23 Tylenol PO Q4H PRN Pain MILD(1-3)/Fever >100.5/DOUGLAS Albuterol/Ipratropium 1 ampul 08/31/19 04:00 Duoneb *Not For Prn Use* IH Q4HRT NANCY Enoxaparin Sodium 40 mg 08/31/19 22:00 Enoxaparin SUB-Q QDAY@2200 NANCY Magnesium Hydroxide 30 ml 08/31/19 00:23 Milk Of Magnesia PO Q4H PRN Constipation Methylprednisolone Sodium Succinate 40 mg 08/31/19 06:00 08/31/19 06:06 Solu-Medrol IV 40 mg Q8HR NANCY Administration Morphine Sulfate 2 mg 08/31/19 00:23 Morphine IV Q4H PRN Pain, Moderate (4-6) Ondansetron HCl 4 mg 08/31/19 00:23 Zofran IV Q8H PRN Nausea And Vomiting Sodium Chloride 10 ml 08/31/19 10:00 Sodium Chloride Flush Syringe 10 Ml IV BID NANCY Sodium Chloride 10 ml 08/31/19 00:23 Sodium Chloride Flush Syringe 10 Ml IV PRN PRN LINE FLUSH
[2019-08-31] MEDS: IPRATROPIUM/ALBUTEROL SULFATE 3 ML AMPUL.NEB IH SCH ×4 (09:04→21:50)
--- NOTE | 2019-08-31 11:42 | Consultation ---
History of Present Illness Consult date: 08/31/19 Requesting physician: ZAKIA HERNÁNDEZ Reason for consult: COPD History of present illness: 68 y/o male with known COPD. Followed by [facility]. 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 On last hospital admit, ordered Trilogy therapy for patient. Unsure if he has been complaint with wearing it. Admitted for COPD exacerbation and hypercapnic respiratory failure. Past History Past Medical History: COPD, other (Chronic respiratory failure) Past Surgical History: No surgical history Social history: no significant social history Family history: no significant family history Medications and Allergies Allergies Allergy/AdvReac Type Severity Reaction Status Date / Time No Known Allergies Allergy Verified 07/26/19 15:33 Home Medications Medication Instructions Recorded Confirmed Last Taken Type Albuterol Mdi (or & Nicu Only) 2 puff IH QID PRN #8.5 gram 07/31/19 Unknown Rx [ProAir HFA Inhaler] Budesonide/Formoterol Fumarate 10.2 gm IH BID #1 hfa.aer.ad 07/31/19 Unknown Rx [Symbicort 160-4.5 Mcg Inhaler] Ipratropium/Albuterol Sulfate 1 ampul IH TIDRT #30 ampul.neb 07/31/19 Unknown Rx [DUONEB *Not for PRN Use*] Prednisone [predniSONE 5 mg (6-Day 5 mg PO .TAPER #1 tab.ds.pk 07/31/19 Unknown Rx Pack, 21 Tabs)] Azithromycin [Zithromax Z-AVRIL] 0 mg PO DAILY #6 tab 08/30/19 Unknown Rx predniSONE [Deltasone] 40 mg PO QDAY #14 tab 08/30/19 Unknown Rx Active Meds: Active Medications Acetaminophen (Tylenol) 650 mg PO Q4H PRN PRN Reason: Pain MILD(1-3)/Fever >100.5/DOUGLAS Albuterol/Ipratropium (Duoneb *Not For Prn Use*) 1 ampul IH Q6HRT NANCY Budesonide (Pulmicort) 0.5 mg IH Q12HRT NANCY Enoxaparin Sodium (Enoxaparin) 40 mg SUB-Q QDAY@2200 NANCY Magnesium Hydroxide (Milk Of Magnesia) 30 ml PO Q4H PRN PRN Reason: Constipation Methylprednisolone Sodium Succinate (Solu-Medrol) 60 mg IV Q6HR NANCY Ondansetron HCl (Zofran) 4 mg IV Q8H PRN PRN Reason: Nausea And Vomiting Sodium Chloride (Sodium Chloride Flush Syringe 10 Ml) 10 ml IV BID NANCY Last Admin: 08/31/19 09:59 Dose: 10 ml Documented by: Sodium Chloride (Sodium Chloride Flush Syringe 10 Ml) 10 ml IV PRN PRN PRN Reason: LINE FLUSH Review of Systems All systems: negative Physical Examination Vital signs: Vital Signs Pulse Ox 100 08/30/19 20:52 Results - Diagnostic Findings Chest x-ray: image reviewed (hyperinflation but clear) Assessment and Plan 68 y/o male with acute exacerbation of COPD and hypercapnic respiratory failure. 1. Bipap QHS and PRN 2. Increased steroids to 60q6 3. Added bid pulmicort therapy 4. OK with scheduled duonebs 5. Will continue to follow. Thank you for this consult.
[2019-08-31] MEDS: methylPREDNISolone Sod Succinate 40 MG/1 ML INJ IV SCH ×2 (12:18→17:53)
[2019-08-31] MEDS: BUDESONIDE 0.5 MG/2 ML NEBU IH SCH (21:50)
[2019-08-31] MEDS: ENOXAPARIN 40 MG/0.4 ML INJ SUB-Q SCH (22:02)
[2019-09-01] MEDS: methylPREDNISolone Sod Succinate 40 MG/1 ML INJ IV SCH ×4 (01:03→17:26)
[2019-09-01] MEDS: IPRATROPIUM/ALBUTEROL SULFATE 3 ML AMPUL.NEB IH SCH ×4 (02:34→20:42)
[2019-09-01 05:44] LABS: Hemoglobin 9.2 gm/dl (11.8-15.2); Mean Corpuscular HGB Conc 32 % (32-34); Mean Corpuscular Volume 98 fl (84-94); Platelet Count 325 K/mm3 (140-440); Red Blood Count 2.96 M/mm3 (3.65-5.03); Red Cell Distribution Width 17.1 % (13.2-15.2)
[2019-09-01 06:01] LABS: BUN/Creatinine Ratio 38; Blood Urea Nitrogen 15 mg/dL (9-20); Calcium 8.7 mg/dL (8.4-10.2); Hemolysis Index 5
[2019-09-01 06:05] LABS: INR 1.03 (0.87-1.13)
[2019-09-01 07:09] LABS: Basophils % (Manual) 0 % (0.0-1.8); Eosinophils % (Manual) 0 % (0.0-4.3); Monocytes % (Manual) 0 % (0.0-7.3); Total Cells Counted 100
[2019-09-01 07:10] LABS: Anisocytosis 1+; Platelet Estimate Consistent w Auto
--- NOTE | 2019-09-01 08:19 | Progress Note ---
Assessment and Plan 68 y/o male with acute exacerbation of COPD and hypercapnic respiratory failure. 1. Bipap QHS and PRN. Please continue to document if patient refuses. 2. Increased steroids to 60q6, can start to wean this tomorrow. Would place on 40q8 3. Continue BID pulmicort therapy with scheduled duonebs 4. Will continue to follow. Thank you for this consult. Subjective Date of service: 09/01/19 Interval history: Patient refused bipap last night. This indicates he is likely not wearing the trilogy machine at home. Currently on 2 liters NC. Objective Vital Signs - 12hr 08/31/19 08/31/19 09/01/19 21:51 23:24 02:36 Temperature 97.9 F Pulse Rate 86 Pulse Rate [ 92 H Anterior Bilateral Throughout] Respiratory 18 Rate Respiratory 20 Rate [Anterior Bilateral Throughout] Blood Pressure 136/72 O2 Sat by Pulse 100 99 Oximetry 09/01/19 09/01/19 03:40 07:28 Temperature 98.0 F Pulse Rate 74 Pulse Rate [ Anterior Bilateral Throughout] Respiratory 18 20 Rate Respiratory Rate [Anterior Bilateral Throughout] Blood Pressure 110/66 O2 Sat by Pulse 100 96 Oximetry CBC and BMP: 09/01/19 04:43 09/01/19 04:43 ABG, PT/INR, D-dimer: PT/INR, D-dimer PT 13.3 Sec. (12.2-14.9) 09/01/19 04:43 INR 1.03 (0.87-1.13) 09/01/19 04:43 Abnormal lab findings: Abnormal Labs 09/01/19 09/01/19 04:43 04:43 WBC 13.8 H RBC 2.96 L Hgb 9.2 L Hct 29.0 L MCV 98 H RDW 17.1 H Seg Neuts % (Manual) 96.0 H Lymphocytes % (Manual) 4.0 L Seg Neutrophils # Man 13.2 H Lymphocytes # (Manual) 0.6 L Chloride 93.2 L Carbon Dioxide 43 H* Creatinine 0.4 L Glucose 115 H
--- NOTE | 2019-09-01 10:32 | Progress Note ---
Assessment and Plan Assessment and plan: --Acute on chronic hypercapnic respiratory failure. Patient with an ABG with PCO2 of 118. Continue BiPAP as clinically indicated. Continue nebulizers IV steroids IV antibiotics inhalation steroids and supportive care Pulmonary following --Acute exacerbation of COPD; Oxygen titrate O2 sats to more than 90% BiPAP as needed, nebulizers steroids antibiotics inhalation steroids supportive care Evaluation for home oxygen at DC --DVT prophylaxis. Subcu Lovenox . We will closely monitor the patient and adjust the management as needed Plan of care reviewed with the patient and his nurse Possible discharge home tomorrow if stable History Interval history: Seen and examined the patient at the bedside this morning Patient's chart medications tests reviewed Admitted with acute exacerbation of COPD Feels slightly better still has shortness of breath and wheezing Vital signs reviewed Alert awake oriented x3 in mild distress Hospitalist Physical - Constitutional Vitals: Temp Pulse Resp BP Pulse Ox 98.0 F 71 17 112/61 100 09/01/19 08:34 09/01/19 08:34 09/01/19 08:34 09/01/19 08:34 09/01/19 08:34 General appearance: Present: no acute distress, well-nourished - EENT Eyes: Present: PERRL, EOM intact - Neck Neck: Present: supple, normal ROM - Respiratory Respiratory effort: normal Respiratory: bilateral: diminished, rhonchi, negative: rales, wheezing - Cardiovascular Rhythm: regular Heart Sounds: Present: S1 & S2 - Extremities Extremities: no ischemia, No edema - Abdominal General gastrointestinal: soft, non-tender, non-distended, normal bowel sounds - Integumentary Integumentary: Present: clear, warm - Psychiatric Psychiatric: appropriate mood/affect, cooperative - Neurologic Neurologic: CNII-XII intact, moves all extremities Results - Labs CBC & Chem 7: 09/01/19 04:43 09/01/19 04:43 Labs: Laboratory Last Values WBC 13.8 K/mm3 (4.5-11.0) H 09/01/19 04:43 RBC 2.96 M/mm3 (3.65-5.03) L 09/01/19 04:43 Hgb 9.2 gm/dl (11.8-15.2) L 09/01/19 04:43 Hct 29.0 % (35.5-45.6) L 09/01/19 04:43 MCV 98 fl (84-94) H 09/01/19 04:43 MCH 31 pg (28-32) 09/01/19 04:43 MCHC 32 % (32-34) 09/01/19 04:43 RDW 17.1 % (13.2-15.2) H 09/01/19 04:43 Plt Count 325 K/mm3 (140-440) 09/01/19 04:43 Add Manual Diff Complete 09/01/19 04:43 Total Counted 100 09/01/19 04:43 Seg Neutrophils % Secy 09/01/19 04:43 Seg Neuts % (Manual) 96.0 % (40.0-70.0) H 09/01/19 04:43 Band Neutrophils % 0 % 09/01/19 04:43 Lymphocytes % (Manual) 4.0 % (13.4-35.0) L 09/01/19 04:43 Reactive Lymphs % (Man) 0 % 09/01/19 04:43 Monocytes % (Manual) 0 % (0.0-7.3) 09/01/19 04:43 Eosinophils % (Manual) 0 % (0.0-4.3) 09/01/19 04:43 Basophils % (Manual) 0 % (0.0-1.8) 09/01/19 04:43 Metamyelocytes % 0 % 09/01/19 04:43 Myelocytes % 0 % 09/01/19 04:43 Promyelocytes % 0 % 09/01/19 04:43 Blast Cells % 0 % 09/01/19 04:43 Nucleated RBC % Not Reportable 09/01/19 04:43 Seg Neutrophils # Man 13.2 K/mm3 (1.8-7.7) H 09/01/19 04:43 Band Neutrophils # 0.0 K/mm3 09/01/19 04:43 Lymphocytes # (Manual) 0.6 K/mm3 (1.2-5.4) L 09/01/19 04:43 Abs React Lymphs (Man) 0.0 K/mm3 09/01/19 04:43 Monocytes # (Manual) 0.0 K/mm3 (0.0-0.8) 09/01/19 04:43 Eosinophils # (Manual) 0.0 K/mm3 (0.0-0.4) 09/01/19 04:43 Basophils # (Manual) 0.0 K/mm3 (0.0-0.1) 09/01/19 04:43 Metamyelocytes # 0.0 K/mm3 09/01/19 04:43 Myelocytes # 0.0 K/mm3 09/01/19 04:43 Promyelocytes # 0.0 K/mm3 09/01/19 04:43 Blast Cells # 0.0 K/mm3 09/01/19 04:43 WBC Morphology Not Reportable 09/01/19 04:43 Hypersegmented Neuts Not Reportable 09/01/19 04:43 Hyposegmented Neuts Not Reportable 09/01/19 04:43 Hypogranular Neuts Not Reportable 09/01/19 04:43 Smudge Cells Not Reportable 09/01/19 04:43 Toxic Granulation Not Reportable 09/01/19 04:43 Toxic Vacuolation Not Reportable 09/01/19 04:43 Dohle Bodies Not Reportable 09/01/19 04:43 Pelger-Huet Anomaly Not Reportable 09/01/19 04:43 Prasanna Rods Not Reportable 09/01/19 04:43 Platelet Estimate Consistent w auto 09/01/19 04:43 Clumped Platelets Not Reportable 09/01/19 04:43 Plt Clumps, EDTA Not Reportable 09/01/19 04:43 Large Platelets Not Reportable 09/01/19 04:43 Giant Platelets Not Reportable 09/01/19 04:43 Platelet Satelliting Not Reportable 09/01/19 04:43 Plt Morphology Comment Not Reportable 09/01/19 04:43 RBC Morphology Not Reportable 09/01/19 04:43 Dimorphic RBCs Not Reportable 09/01/19 04:43 Polychromasia Not Reportable 09/01/19 04:43 Hypochromasia Not Reportable 09/01/19 04:43 Poikilocytosis Not Reportable 09/01/19 04:43 Anisocytosis 1+ 09/01/19 04:43 Microcytosis Not Reportable 09/01/19 04:43 Macrocytosis Not Reportable 09/01/19 04:43 Spherocytes Not Reportable 09/01/19 04:43 Pappenheimer Bodies Not Reportable 09/01/19 04:43 Sickle Cells Not Reportable 09/01/19 04:43 Target Cells Not Reportable 09/01/19 04:43 Tear Drop Cells Not Reportable 09/01/19 04:43 Ovalocytes Not Reportable 09/01/19 04:43 Helmet Cells Not Reportable 09/01/19 04:43 Solorio-Rialto Bodies Not Reportable 09/01/19 04:43 [place] Rings Not Reportable 09/01/19 04:43 Leilani Cells Not Reportable 09/01/19 04:43 Bite Cells Not Reportable 09/01/19 04:43 Crenated Cell Not Reportable 09/01/19 04:43 Elliptocytes Not Reportable 09/01/19 04:43 Acanthocytes (Spur) Not Reportable 09/01/19 04:43 Rouleaux Not Reportable 09/01/19 04:43 Hemoglobin C Crystals Not Reportable 09/01/19 04:43 Schistocytes Not Reportable 09/01/19 04:43 Malaria parasites Not Reportable 09/01/19 04:43 Nate Bodies Not Reportable 09/01/19 04:43 Hem Pathologist Commnt No 09/01/19 04:43 PT 13.3 Sec. (12.2-14.9) 09/01/19 04:43 INR 1.03 (0.87-1.13) 09/01/19 04:43 Sodium 142 mmol/L (137-145) 09/01/19 04:43 Potassium 5.0 mmol/L (3.6-5.0) 09/01/19 04:43 Chloride 93.2 mmol/L (98-107) L 09/01/19 04:43 Carbon Dioxide 43 mmol/L (22-30) H* 09/01/19 04:43 Anion Gap 11 mmol/L 09/01/19 04:43 BUN 15 mg/dL (9-20) 09/01/19 04:43 Creatinine 0.4 mg/dL (0.8-1.5) L 09/01/19 04:43 Estimated GFR > 60 ml/min 09/01/19 04:43 BUN/Creatinine Ratio 38 % 09/01/19 04:43 Glucose 115 mg/dL (75-100) H 09/01/19 04:43 Calcium 8.7 mg/dL (8.4-10.2) 09/01/19 04:43 Dale/IV: Voiding Method Urinal IV Catheter Type [Left Forearm INT / Saline Lock ] Active Medications - Current Medications Current Medications: Generic Name Dose Route Start Last Admin Trade Name Freq PRN Reason Stop Dose Admin Acetaminophen 650 mg 08/31/19 00:23 Tylenol PO Q4H PRN Pain MILD(1-3)/Fever >100.5/DOUGLAS Albuterol/Ipratropium 1 ampul 08/31/19 14:00 09/01/19 02:34 Duoneb *Not For Prn Use* IH 1 ampul Q6HRT NANCY Administration Budesonide 0.5 mg 08/31/19 20:00 08/31/19 21:50 Pulmicort IH Not Given Q12HRT NANCY Enoxaparin Sodium 40 mg 08/31/19 22:00 08/31/19 22:02 Enoxaparin SUB-Q 40 mg QDAY@2200 NANCY Administration Magnesium Hydroxide 30 ml 08/31/19 00:23 Milk Of Magnesia PO Q4H PRN Constipation Methylprednisolone Sodium Succinate 60 mg 08/31/19 12:00 09/01/19 07:01 Solu-Medrol IV 60 mg Q6HR NANCY Administration Ondansetron HCl 4 mg 08/31/19 00:23 Zofran IV Q8H PRN Nausea And Vomiting Sodium Chloride 10 ml 08/31/19 10:00 09/01/19 09:45 Sodium Chloride Flush Syringe 10 Ml IV 10 ml BID NANCY Administration Sodium Chloride 10 ml 08/31/19 00:23 Sodium Chloride Flush Syringe 10 Ml IV PRN PRN LINE FLUSH Nutrition/Malnutrition Assess - Dietary Evaluation Nutrition/Malnutrition Findings: Nutrition Notes Start: 08/31/19 13:5 7 Freq: Status: Active Protocol: Document 08/31/19 13:57 LM (Rec: 08/31/19 14:03 LM [id number]) Nutrition Notes Need for Assessment generated from: Low BMI Initial or Follow up Assessment Current Diagnosis COPD,Respiratory Failure Current Diet cardiac Labs/Tests no labs Pertinent Medications Solu-Medrol Height 5 ft 10 in Weight 56 kg [place] Body Weight (kg) 75.45 BMI 17.6 Weight Status Underweight Subjective/Other Information Screen for low BMI. Unable to see pt at time of visit. Pt is on bipap. Reviewed chart form 1 month ago. Pt weighed 45kg, indicating no wt loss. Burn Absent Trauma Absent Minimum of two criteria No physical signs of malnutrition #1 Nutrition Diagnosis Predicted suboptimal energy intake Etiology COPD, pt on Bipap As Evidenced by Signs and Symptoms BMI of 17.7 Is patient on ventilator? No Is Patient Ambulatory and/or Out of Bed No REE-([place]-St. Jeor-confined to bed) 1615.260 Kcal/Kg value to use for calculation 35 Approximate Energy Requirements Using 1960 kcal/Kg Calculation Used for Recommendations Kcal/kg Additional Notes Protein: 56-67g (1-1.2g/kg) Fluid: 1ml/kcal Nutrition Intervention Change Diet Order: continue Add Supplement/Snack (indicate name/kcal Ensure Enlive daily /protein ) Provides kCal: 350 Provides Protein (gm) 20 Goal #1 Meet at least 80% of energy and protein needs Anticipated Discharge Needs: cardiac Follow-Up By: 09/02/19 Additional Comments F/U for intakes, full assessment
[2019-09-01] MEDS: BUDESONIDE 0.5 MG/2 ML NEBU IH SCH ×2 (12:30→20:41)
[2019-09-01 22:07] VITALS: BP 147/78
[2019-09-01] MEDS: ENOXAPARIN 40 MG/0.4 ML INJ SUB-Q SCH (22:29)
[2019-09-02] MEDS: methylPREDNISolone Sod Succinate 40 MG/1 ML INJ IV SCH ×2 (00:37→06:03)
[2019-09-02] MEDS: IPRATROPIUM/ALBUTEROL SULFATE 3 ML AMPUL.NEB IH SCH ×3 (02:50→15:32)
[2019-09-02] MEDS ORDERED: methylPREDNISolone Sod Succinate 40 MG/1 ML INJ IV SCH (08:00)
[2019-09-02] MEDS: BUDESONIDE 0.5 MG/2 ML NEBU IH SCH ×2 (09:47→09:52)
--- NOTE | 2019-09-02 12:12 | Discharge Summary ---
Providers - Providers Date of Admission: 08/30/19 11:20 Date of discharge: 09/02/19 Attending physician: MIRIAM ISIDRO 08/31/19 08:27 Consult to Physician [CONS] Routine Comment: Consulting Provider: MARCY HUNT Physician Instructions: Reason For Exam: resp failure [facility] Condition: Stable Disposition: DC-01 TO HOME OR SELFCARE Time spent for discharge: 32 min Core Measure Documentation - Palliative Care Palliative Care/ Comfort Measures: Not Applicable - Core Measures Any of the following diagnoses?: none Exam - Constitutional Vitals: Temp Pulse Resp BP Pulse Ox 98.5 F 81 18 147/78 100 09/01/19 21:10 09/02/19 02:51 09/02/19 02:51 09/01/19 21:10 09/01/19 21:10 General appearance: Present: no acute distress, well-nourished - EENT Eyes: Present: PERRL, EOM intact - Neck Neck: Present: supple, normal ROM - Respiratory Respiratory effort: normal Respiratory: bilateral: diminished, negative: rales, rhonchi, wheezing - Cardiovascular Rhythm: regular Heart Sounds: Present: S1 & S2 - Extremities Extremities: no ischemia, No edema - Abdominal General gastrointestinal: Present: soft, non-tender, non-distended, normal bowel sounds - Integumentary Integumentary: Present: clear, warm - Musculoskeletal Musculoskeletal: strength equal bilaterally - Psychiatric Psychiatric: appropriate mood/affect, cooperative - Neurologic Neurologic: moves all extremities Plan Activity: advance as tolerated Diet: other (cardiac diet) Additional Instructions: Continue home oxygen as before Follow up with: CASIE KING MD [Primary Care Provider] - 7 Days MARCY HUNT MD [Staff Physician] - 7 Days Prescriptions: predniSONE [Deltasone] 10 mg PO QDAY #39 tab
--- NOTE | 2019-09-02 13:25 | Progress Note ---
Assessment and Plan 68 y/o male with acute exacerbation of COPD and hypercapnic respiratory failure. 1. Bipap QHS and PRN. Please continue to document if patient refuses. Not done so last night, will speak with RT about this. 2. Ok with changing to oral Prednisone 60 daily and tapering from there 3. Continue BID pulmicort therapy with scheduled duonebs 4. Resume home COPD regimen at discharge 5. No Objection to discharge from a pulmonary standpoint. Patient has been refusing care while admitted. 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 H opefully he will wear the trilogy machine we got for him at last hospital stay. Subjective Date of service: 09/02/19 Interval history: No documentation of bipap therapy last night, so likely did not wear again. Refused steroids this am. Satting well on 2 liters NC. Objective Vital Signs - 12hr 09/02/19 02:51 Pulse Rate [ 81 Anterior Bilateral Throughout] Respiratory 18 Rate [Anterior Bilateral Throughout] CBC and BMP: 09/01/19 04:43 09/01/19 04:43 ABG, PT/INR, D-dimer: PT/INR, D-dimer PT 13.3 Sec. (12.2-14.9) 09/01/19 04:43 INR 1.03 (0.87-1.13) 09/01/19 04:43 Abnormal lab findings: Abnormal Labs 09/01/19 09/01/19 04:43 04:43 WBC 13.8 H RBC 2.96 L Hgb 9.2 L Hct 29.0 L MCV 98 H RDW 17.1 H Seg Neuts % (Manual) 96.0 H Lymphocytes % (Manual) 4.0 L Seg Neutrophils # Man 13.2 H Lymphocytes # (Manual) 0.6 L Chloride 93.2 L Carbon Dioxide 43 H* Creatinine 0.4 L Glucose 115 H
== END 2019-09-02 17:23 | disposition hospice, home (50) | DRG 189 ==
LOC: ED 10:44 → IMCU 11:20 → 4A 08-31 00:28
PROVIDERS: ADMIT Hospitalist; ATTEND Internal Medicine
DX: J96.22 Acute and chronic respiratory failure with hypercapnia (principal); J44.1 Chronic obstructive pulmonary disease with (acute) exacerbation; Z99.81 Dependence on supplemental oxygen
CPT/HCPCS: 36415; 71045; 80048; 80053; 82803; 85007; 85025; 85610; 93005; 94640; 94644; 94760; 96365; 96375; G0378; J1650; J2920; J2930; J3475